=== PATIENT | male | born 1945 | race Caucasian/White ===

== ENCOUNTER 2018-12-06 14:42 | Emergency (ER) | payer OTHER, MEDICARE ==
[2018-12-06 15:10] LABS: ABSOLUTE EOSINOPHILS # (AUTO) 0.1 10^3/uL (0.0-0.6); ABSOLUTE MONOCYTES (AUTO) 0.3 10^3/uL (0.1-1.4); ABSOLUTE NEUT (AUTO) 2.8 10^3/uL (1.7-8.2); BASOPHILS % (AUTO) 0.5 % (0-2); EOSINOPHILS % (AUTO) 1.7 % (0-6); HEMATOCRIT 40.3 % (37.9-51.0); HEMOGLOBIN 13.7 g/dL (13.5-17.0); LYMPHOCYTES % (AUTO) 24.9 % (13-45); MEAN CORPUSCULAR HGB CONC 33.9 g/dL (32.0-36.0); MEAN CORPUSCULAR VOLUME 85 fl (80-97); MONOCYTES % (AUTO) 7.4 % (3-13); PLATELET COUNT 134 10^3/uL (150-450); RED BLOOD COUNT 4.71 10^6/uL (4.35-5.55); RED CELL DISTRIBUTION WIDTH 14.3 % (11.5-14.0); SEGMENTED NEUTROPHILS % (AUTO) 65.5 % (42-78); TOTAL CELLS COUNTED % (AUTO) 100 %; WHITE BLOOD COUNT 4.2 10^3/uL (4.0-10.5)
[2018-12-06] MEDS ORDERED: NITROGLYCERIN 2% OINTMENT 1 GM PACKET TP ONE (15:15)
--- NOTE | 2018-12-06 15:15 | ER Document Report ---
ED Cardiac - General Chief Complaint: Chest Pain Stated Complaint: CHEST PAIN Time Seen by Provider: 12/06/18 15:13 Notes: 73-year-old male to the emergency department for evaluation of chest pain. Patient is a 73-year-old male. Known history of coronary artery disease with open heart surgery, three-vessel bypass grafting, stents. States that pain began earlier today. Pressure in the chest radiating down the left arm. Last conference of cardiac evaluation was performed in July 2018 in [facility]. States that he had a angiogram done at that time which showed some cardiac disease but nothing that was treatable by stents. States that he normally takes all of his medications, 17 pills a day, and has not missed a nything today. Did take a nitroglycerin which helped to relieve some of his symptoms. TRAVEL OUTSIDE OF THE [place] IN LAST 30 DAYS: No - HPI Patient complains to provider of: Chest pain, Chest tightness Was the onset of pain: Sudden Is the pain a: Chronic problem Chest pain location: Substernal Quality of pain: Constant, Moderate, Pressure Chest pain radiation location: Left jaw, Left arm Severity now: Moderate Severity at worst: Moderate Pain level currently: 3 - Related Data Allergies/Adverse Reactions: Sulfa (Sulfonamide Antibiotics) Allergy (Verified 12/06/18 14:53) Past Medical History - General Information source: Patient - Social History Smoking Status: Former Smoker Frequency of alcohol use: None Drug Abuse: None Lives with: Other - Incarcerated Family History: Reviewed & Not Pertinent - Past Medical History Cardiac Medical History: Reports: Hx Coronary Artery Disease Review of Systems - Review of Systems Notes: Constitutional: denies: Chills, Diaphoresis, Fever, Malaise, Weakness EENT: denies: Eye discharge, Blurred vision, Tearing, Double vision, Nose congestion, Nose discharge, Throat swelling, Mouth pain Cardiovascular: denies: Palpitations, Heart racing, Orthopnea, Dyspnea, +Chest pain Respiratory: denies: Cough, Hurts to breathe, Wheezing, Shortness of breath Gastrointestinal: denies: Abdominal pain, Diarrhea, Nausea, Vomiting, Black stoo ls, bright red blood in stool Genitourinary: denies: Burning, Dysuria, Discharge, Frequency, Flank pain, Hematuria Musculoskeletal: denies: Joint pain, Joint swelling, Muscle pain, Muscle stiffness, back pain Hematologic/Lymphatic: denies: Anemia, Easy bleeding, Easy bruising, Blood clots Neurological/Psychological: denies: Confusion, Dementia, Depression, Loss of consciousness Skin: No lesions, no masses, no skin breakdown, no abscesses Constitutional: No symptoms reported EENT: No symptoms reported Cardiovascular: No symptoms reported Respiratory: No symptoms reported Gastrointestinal: No symptoms reported Genitourinary: No symptoms reported Male Genitourinary: No symptoms reported Musculoskeletal: No symptoms reported Skin: No symptoms reported Hematologic/Lymphatic: No symptoms reported Neurological/Psychological: No symptoms reported Physical Exam - Vital signs Vitals: Temp 98.2 F 12/06/18 14:43 Interpretation: Normal - General General appearance: Appears well, Alert - HEENT Head: Normocephalic, Atraumatic Eyes: Normal Pupils: PERRL - Respiratory Respiratory status: No respiratory distress Chest status: Nontender Breath sounds: Normal Chest palpation: Normal - Cardiovascular Rhythm: Regular Heart sounds: Normal auscultation Murmur: No - Abdominal Inspection: Normal Distension: No distension Bowel sounds: Normal Tenderness: Nontender Organomegaly: No organomegaly - Back Back: Normal, Nontender - Extremities General upper extremity: Normal inspection, Nontender, Normal color, Normal ROM, Normal temperature General lower extremity: Normal inspection, Nontender, Normal color, Normal ROM, Normal temperature. No: Daysi's sign - Neurological Neuro grossly intact: Yes Cognition: Normal Orientation: AAOx4 [place] Coma Scale Eye Opening: Spontaneous [place] Coma Scale Verbal: Oriented [place] Coma Scale Motor: Obeys Commands Jovanni Coma Scale Total: 15 Speech: Normal Motor strength normal: LUE, RUE, LLE, RLE Sensory: Normal - Psychological Associated symptoms: Normal affect, Normal mood - Skin Skin Temperature: Warm Skin Moisture: Dry Skin Color: Normal Course - Re-evaluation Re-evalutation: 12/06/18 21:04 Laboratory 12/06/18 12/06/18 12/06/18 14:27 14:27 14:27 WBC 4.2 RBC 4.71 Hgb 13.7 Hct 40.3 MCV 85 MCH 29.0 MCHC 33.9 RDW 14.3 H Plt Count 134 L Seg Neutrophils % 65.5 Lymphocytes % 24.9 Monocytes % 7.4 Eosinophils % 1.7 Basophils % 0.5 Absolute Neutrophils 2.8 Absolute Lymphocytes 1.0 Absolute Monocytes 0.3 Absolute Eosinophils 0.1 Absolute Basophils 0.0 PT INR APTT Sodium 141.9 Potassium 4.8 Chloride 105 Carbon Dioxide 27 Anion Gap 10 BUN 20 Creatinine 1.11 Est GFR ( Amer) > 60 Est GFR (Non-Af Amer) > 60 Glucose 114 H Calcium 10.1 Total Bilirubin 0.9 Direct Bilirubin 0.2 Neonat Total Bilirubin Not Reportable Neonat Direct Bilirubin Not Reportable Neonat Indirect Bili Not Reportable AST 34 ALT 27 Alkaline Phosphatase 72 Creatine Kinase 36 L CK-MB (CK-2) 1.14 Troponin I < 0.012 NT-Pro-B Natriuret Pep Total Protein 6.8 Albumin 4.2 12/06/18 12/06/18 12/06/18 14:27 14:27 19:10 WBC RBC Hgb Hct MCV MCH MCHC RDW Plt Count Seg Neutrophils % Lymphocytes % Monocytes % Eosinophils % Basophils % Absolute Neutrophils Absolute Lymphocytes Absolute Monocytes Absolute Eosinophils Absolute Basophils PT 13.6 INR 0.99 APTT 32.6 Sodium Potassium Chloride Carbon Dioxide Anion Gap BUN Creatinine Est GFR ( Amer) Est GFR (Non-Af Amer) Glucose Calcium Total Bilirubin Direct Bilirubin Neonat Total Bilirubin Neonat Direct Bilirubin Neonat Indirect Bili AST ALT Alkaline Phosphatase Creatine Kinase CK-MB (CK-2) Troponin I < 0.012 NT-Pro-B Natriuret Pep 1060 H Total Protein Albumin Chest X-Ray 12/06/18 14:56 IMPRESSION: Borderline cardiomegaly. No pulmonary edema. 2 sets of cardiac labs negative. Patient has had a recent cardiac catheterization and a workup which was reportedly unremarkable. Chest pain is something that he deals with on a regular basis. 12/06/18 22:16 Muffler Installer has been consulted. He recommends a third set of cardiac labs and discharge if it is negative. Patient has had a recent cardiac catheterization which did not reveal any treatable lesions. Has been seen by float phlebotomist. On current therapies. His chest pain-free at this time. We will follow his recommendations 12/06/18 23:38 Repeat cardiac troponins negative x3. Patient has been observed for extensive amount of time. Do not feel that this represents acute coronary syndrome or u nstable angina. Patient has angina. Has follow-up. Recent cath which was unremarkable. Comfortable discharging at this time in stable condition. - Vital Signs Vital signs: Temp Pulse Resp BP Pulse Ox 98.2 F 17 112/54 L 95 12/06/18 14:43 12/06/18 22:31 12/06/18 22:31 12/06/18 21:00 - Laboratory Result Diagrams: 12/06/18 14:27 12/06/18 14:27 Laboratory results interpreted by me: 12/06/18 12/06/18 12/06/18 14:27 14:27 14:27 RDW 14.3 H Plt Count 134 L Glucose 114 H Creatine Kinase 36 L NT-Pro-B Natriuret Pep 1060 H - EKG Interpretation by Me When compared to previous EKG there are: Previous EKG unavailable Additional EKG results interpreted by me: 12/06/18 15:19 Patient has a artificially atrial sensed ventricular paced rhythm with a rate of 64. No signs of significant ST segment elevation or depression. Discharge - Discharge Clinical Impression: Angina at rest Condition: Good Disposition: HOME, SELF-CARE Instructions: Angina Episode ([facility]), Nitrates ([facility]) Additional Instructions: Follow-up with your float phlebotomist. Continue to take all of your regular medications as prescribed. You may use nitroglycerin 1 tab sublingual if chest pain returns. This may repeat be repeated every 5 minutes for a total of 3 dosages. If chest pain persists after that please notify the staff and return for a repeat evaluation or follow the recommendations of your float phlebotomist. Prescriptions: Nitroglycerin 0.3 mg SL Q5M 1 Days #1 tab.subl Referrals: LEROY WALKER MD [ACTIVE STAFF] - Follow up as needed
[2018-12-06 15:20] LABS: ALANINE AMINOTRANSFERASE 27 U/L (21-72); ALBUMIN 4.2 g/dL (3.5-5.0); ALKALINE PHOSPHATASE 72 U/L (38-126); ANION GAP 10 (5-19); ASPARTATE AMINO TRANSFERASE 34 U/L (17-59); BILIRUBIN,DIRECT 0.2 mg/dL (0.0-0.4); BILIRUBIN,TOTAL 0.9 mg/dL (0.2-1.3); BLOOD UREA NITROGEN 20 mg/dL (7-20); CALCIUM 10.1 mg/dL (8.4-10.2); CARBON DIOXIDE 27 mmol/L (22-30); CHLORIDE 105 mmol/L (98-107); CREATINE KINASE 36 U/L (55-170); GLUCOSE 114 mg/dL (75-110); POTASSIUM 4.8 mmol/L (3.6-5.0); SODIUM 141.9 mmol/L (137-145); TOTAL PROTEIN 6.8 g/dL (6.3-8.2)
[2018-12-06 15:31] LABS: CREATINE KINASE MB 1.14 ng/mL (<4.55)
[2018-12-06 15:32] LABS: TROPONIN I < 0.012 ng/mL
--- NOTE | 2018-12-06 16:00 | EKG REPORT ---
SEVERITY:- ABNORMAL ECG - ATRIAL-SENSED VENTRICULAR-PACED RHYTHM : Confirmed by: Octaviano Juares MD 06-Dec-2018 15:58:57
[2018-12-06 16:01] LABS: INTERNATIONAL RATION (INR) 0.99; PROTHROMBIN TIME 13.6 SEC (11.4-15.4)
[2018-12-06 16:03] LABS: PARTIAL THROMBOPLASTIN TIME 32.6 SEC (23.5-35.8)
--- NOTE | 2018-12-06 16:26 | RADIOLOGY REPORT (SQ) ---
EXAM DESCRIPTION: CHEST SINGLE VIEW COMPLETED DATE/TIME: 12/06/2018 4:05 pm REASON FOR STUDY: chest pain COMPARISON: None. EXAM PARAMETERS: NUMBER OF VIEWS: One view. TECHNIQUE: Single frontal radiographic view of the chest acquired. RADIATION DOSE: NA LIMITATIONS: None. FINDINGS: LUNGS AND PLEURA: No opacities, masses or pneumothorax. No pleural effusion. MEDIASTINUM AND HILAR STRUCTURES: No masses. Contour normal. HEART AND VASCULAR STRUCTURES: Borderline heart size. No pulmonary edema. BONES: No acute findings. HARDWARE: Pacemaker/defibrillator. Sternotomy wires. Graft markers. OTHER: No other significant finding. IMPRESSION: Borderline cardiomegaly. No pulmonary edema. TECHNICAL DOCUMENTATION: JOB ID: [id number] [employer]- All Rights Reserved Reading location - IP/workstation name: [email or web address]
[2018-12-06] MEDS ORDERED: HYDROCODONE/ACETAMINOPHEN 5-325 MG TABLET PO ONE (17:18)
[2018-12-07] VITALS: BP 121/68
== END 2018-12-07 00:02 | disposition home or self-care (01) ==
LOC: ER 14:42
DX: I20.9 Angina pectoris, unspecified (principal); R07.9 Chest pain, unspecified; I25.10 Atherosclerotic heart disease of native coronary artery without angina pectoris; Z88.2 Allergy status to sulfonamides; Z95.1 Presence of aortocoronary bypass graft
CPT/HCPCS: 36415; 71045; 80053; 82550; 82553; 83880; 84484; 85025; 85610; 85730; 93005; 93010; 99285

== ENCOUNTER 2018-12-09 08:18 | Inpatient (IN) | payer MEDICARE ==
[2018-12-09 08:57] LABS: ABSOLUTE LYMPHOCYTES (AUTO) 0.7 10^3/uL (0.5-4.7); ABSOLUTE MONOCYTES (AUTO) 0.2 10^3/uL (0.1-1.4); ABSOLUTE NEUT (AUTO) 6.4 10^3/uL (1.7-8.2); BASOPHILS % (AUTO) 0.2 % (0-2); EOSINOPHILS % (AUTO) 0.2 % (0-6); HEMATOCRIT 43.1 % (37.9-51.0); HEMOGLOBIN 14.4 g/dL (13.5-17.0); LYMPHOCYTES % (AUTO) 9.7 % (13-45); MEAN CORPUSCULAR HEMOGLOBIN 29.5 pg (27.0-33.4); MEAN CORPUSCULAR HGB CONC 33.4 g/dL (32.0-36.0); MEAN CORPUSCULAR VOLUME 88 fl (80-97); MONOCYTES % (AUTO) 2.3 % (3-13); RED BLOOD COUNT 4.89 10^6/uL (4.35-5.55); RED CELL DISTRIBUTION WIDTH 14.2 % (11.5-14.0); SEGMENTED NEUTROPHILS % (AUTO) 87.6 % (42-78); TOTAL CELLS COUNTED % (AUTO) 100 %; WHITE BLOOD COUNT 7.3 10^3/uL (4.0-10.5)
[2018-12-09 09:53] LABS: PLATELET COUNT 95 10^3/uL (150-450)
[2018-12-09 10:15] LABS: ALANINE AMINOTRANSFERASE 63 U/L (21-72); ALBUMIN 4.1 g/dL (3.5-5.0); ALKALINE PHOSPHATASE 82 U/L (38-126); ANION GAP 12 (5-19); ASPARTATE AMINO TRANSFERASE 89 U/L (17-59); BILIRUBIN,DIRECT 0.5 mg/dL (0.0-0.4); BILIRUBIN,TOTAL 2.1 mg/dL (0.2-1.3); BLOOD UREA NITROGEN 22 mg/dL (7-20); CALCIUM 10.4 mg/dL (8.4-10.2); CARBON DIOXIDE 22 mmol/L (22-30); CHLORIDE 107 mmol/L (98-107); GLUCOSE 91 mg/dL (75-110); LIPASE 64.4 U/L (23-300); SODIUM 140.7 mmol/L (137-145); TOTAL PROTEIN 6.6 g/dL (6.3-8.2)
--- NOTE | 2018-12-09 10:34 | RADIOLOGY REPORT (SQ) ---
EXAM DESCRIPTION: ACUTE ABDOMEN SERIES COMPLETED DATE/TIME: 12/09/2018 10:26 am REASON FOR STUDY: Nausea vomiting diarrhea, abdominal distention COMPARISON: None. NUMBER OF VIEWS: Three views. TECHNIQUE: Frontal chest, supine abdomen and upright/decubitus abdomen radiographic images acquired. LIMITATIONS: None. FINDINGS: CHEST: Lungs clear of infiltrates. FREE AIR: None. No abnormal gas collections. BOWEL GAS PATTERN: Gas pattern is nonobstructive. There is mildly dilated large and small bowel. In frequent air-fluid levels on the decubitus film. No free air. CALCIFICATIONS: No suspicious calcifications. HARDWARE: None in the abdomen. SOFT TISSUES: No gross mass or suggestion of organomegaly. BONES: No acute fracture. No worrisome bone lesions. OTHER: No other significant finding. IMPRESSION: Probable ileus. No acute findings in the chest. TECHNICAL DOCUMENTATION: JOB ID: [id number] [employer]- All Rights Reserved Reading location - IP/workstation name: [email or web address]
[2018-12-09] MEDS ORDERED: MORPHINE SULFATE 10 MG/ML INJ IV ONE (10:41)
[2018-12-09] MEDS ORDERED: DEXTROSE 5%-LACTATED RINGERS 1,000 ML IV ONE (10:41)
[2018-12-09] MEDS ORDERED: ONDANSETRON HCL INJ/PF 4 MG/2 ML SDV IV ONE (10:41)
[2018-12-09] MEDS ORDERED: ONDANSETRON HCL INJ/PF 4 MG/2 ML SDV ONE (10:50)
[2018-12-09] MEDS ORDERED: NORMAL SALINE 1000 ML 1,000 ML IV ONE (12:03)
[2018-12-09 14:34] LABS: APPEARANCE,URINE SLIGHTLY-CLOUDY; BILIRUBIN,URINE NEGATIVE (NEGATIVE); COLOR,URINE DARK YELLOW; GLUCOSE, URINE NEGATIVE (NEGATIVE); KETONES,URINE TRACE mg/dL (NEGATIVE); LEUKOCYTE ESTERASE,URINE TRACE (NEGATIVE); NITRITE,URINE NEGATIVE (NEGATIVE); PROTEIN,URINE 30 mg/dL (NEGATIVE); URINE SPECIFIC GRAVITY 1.018
[2018-12-09] MEDS ORDERED: IPRATROPIUM/ALBUTEROL 0.5-2.5 MG/3 ML AMPUL NEB PRN (16:01)
[2018-12-09] MEDS: NORMAL SALINE 1000 ML 1,000 ML IV PRN (16:34)
--- NOTE | 2018-12-09 16:37 | ER Document Report ---
Entered by SOHA BURCH SCRIBE 12/09/18 1011 Acting as scribe for:JASON DIOP MD ED General - General Chief Complaint: Abdominal Pain Stated Complaint: ABDOMINAL PAIN Time Seen by Provider: 12/09/18 09:22 Mode of Arrival: Ambulatory Information source: Patient Notes: Patient is a 73 year old male with HTN, hyperlipidemia, CAD and a history of a 3 vessel bypass, 3 stents, [place] presents to the emergency department from [facility] complaining of multiple symptoms including nausea, vomiting, abdominal cramping, diarrhea and generalized weaknes. Patient states he was incarcerated 4 days ago and his symptoms were onset 3 days ago. He states he vomits and has diarrhea immedatiely after food consumption. The patient initially stated that his symptoms started on Wednesday, he was placed in the halfway here on Wednesday. I pointed out to him that he was here Wednesday af [place] and discharged early Wednesday morning from the emergency room, he then stated that he must of been confused and meant that the symptoms started on Wednesday after he was sent back to the halfway. TRAVEL OUTSIDE OF THE [place] IN LAST 30 DAYS: No - Related Data Allergies/Adverse Reactions: Sulfa (Sulfonamide Antibiotics) Allergy (Verified 12/06/18 14:53) Past Medical History - General Information source: Patient - Social History Smoking Status: Never Smoker Chew tobacco use (# tins/day): No Frequency of alcohol use: None Drug Abuse: None Family History: Reviewed & Not Pertinent Patient has suicidal ideation: No Patient has homicidal ideation: No - Past Medical History Cardiac Medical History: Reports: Hx Congestive Heart Failure, Hx Coronary Artery Disease, Hx Heart Attack - [place] in 2018., Hx Hypercholesterolemia, Hx Hyper tension Pulmonary Medical History: Reports: Hx COPD Malignancy Medical History: Reports Hx Renal (Kidney) Cancer - Left nephrectomy Past Surgical History: Reports: Hx Cardiac Catheterization, Hx Cardiac Surgery - 3 -vessel bypass in 2006 due to unstable agina. Pacemaker. stentsx3 Review of Systems - Review of Systems Constitutional: See HPI, Weakness EENT: No symptoms reported Cardiovascular: No symptoms reported Respiratory: No symptoms reported Gastrointestinal: See HPI, Abdominal pain, Diarrhea, Nausea, Vomiting Genitourinary: No symptoms reported Male Genitourinary: No symptoms reported Musculoskeletal: No symptoms reported Skin: No symptoms reported Hematologic/Lymphatic: No symptoms reported Neurological/Psychological: No symptoms reported -: Yes All other systems reviewed and negative Physical Exam - Vital signs Vitals: Resp BP 22 H 107/66 12/09/18 08:25 12/09/18 08:25 - Notes Notes: GENERAL: Alert, interacts well. No acute distress. HEAD: Normocephalic, atraumatic. EYES: Pupils equal, round, and reactive to light. Extraocular movements intact. ENT: Oral mucosa moist, tongue midline. NECK: Full range of motion. Supple. Trachea midline. LUNGS: Clear to auscultation bilaterally, no wheezes, rales, or rhonchi. No respiratory distress. HEART: Regular rate and rhythm. No murmurs, gallops, or rubs. ABDOMEN: Abdomen distended. Hyperresonant, tender to palpation to the lower abdomen. Decreased bowel sounds. EXTREMITIES: Moves all 4 extremities spontaneously. NEUROLOGICAL: Alert and oriented x3. Normal speech. PSYCH: Normal affect, normal mood. SKIN: Warm, dry, normal turgor. No rashes or lesions noted. Course - Vital Signs Vital signs: Temp Pulse Resp BP Pulse Ox 97.6 F 22 H 100/62 93 12/09/18 13:44 12/09/18 15:01 12/09/18 15:01 12/09/18 15:01 - Laboratory Result Diagrams: 12/09/18 08:37 12/09/18 09:41 Laboratory results interpreted by me: 12/09/18 12/09/18 12/09/18 08:37 09:41 13:46 RDW 14.2 H Plt Count 95 L Seg Neutrophils % 87.6 H Lymphocytes % 9.7 L Monocytes % 2.3 L BUN 22 H Creatinine 1.55 H Est GFR ( Amer) 54 L Est GFR (Non-Af Amer) 44 L Calcium 10.4 H Total Bilirubin 2.1 H Direct Bilirubin 0.5 H AST 89 H Urine Protein 30 H Urine Ketones TRACE H Urine Urobilinogen 4.0 H Ur Leukocyte Esterase TRACE H - Diagnostic Test Radiology reviewed: Image reviewed, Reports reviewed - Acute abdominal series shows scattered air-fluid levels with dilated loops of small bowel and large bowel. Pattern most consistent with ileus. - Consults Dr. Rea Time consulted: 15:20 Consulted provider: will come to ER Discharge - Discharge Clinical Impression: Nausea, vomiting and diarrhea, Dehydration, Ileus, unspecified Condition: Stable Disposition: ADMITTED INPATIENT Admitting Provider: Hospitalist Unit Admitted: Telemetry Scribe Attestation: 12/09/18 12:03 I personally performed the services described in the documentation, reviewed and edited the documentation which was dictated to the scribe in my presence, and it accurately records my words and actions. I personally performed the services described in the documentation, reviewed and edited the documentation which was dictated to the scribe in my presence, and it accurately records my words and actions.
[2018-12-09] MEDS ORDERED: FONDAPARINUX SODIUM INJ 2.5 MG/0.5 ML DISP.SYRIN SUBCUT ONE (17:00)
[2018-12-09 17:05] LABS: A TYPE INFLUENZA AG NEGATIVE (NEGATIVE); B INFLUENZA AG NEGATIVE (NEGATIVE)
--- NOTE | 2018-12-09 18:36 | PDOC H&P ---
History of Present Illness Admission Date/PCP: 12/09/18 17:43 Patient complains of: vomiting, diarrhea History of Present Illness: BETSY AGUDELO is a 73 year old male with a PMH of CAD with prior stenting x 2 (2006, 2007), prior CABG, CHF (reports his EF years ago was 25%), S/P pacemaker placement, ?renal cell CA S/P left sided nephrectomy who comes from [facility] who presented with vomiting and diarrhea. Patient says he has been having nonbloody nonbilious emeses ~2x/day since Wednesday. This was associated with loose, nonbloody stools ~1-2x/day. He also r eports of left lower quadrant crampy pain. Denies fever or chills. He did complain of having some nasal congestion and nonproductive cough. 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 Denies chest pain or SOB. Past Medical History Cardiac Medical History: Reports: Congestive Heart Failure, Coronary Artery Disease, Myocardial Infarction - [place] in 2018., Hyperlipidema, Hypertension Pulmonary Medical History: Reports: Chronic Obstructive Pulmonary Disease (COPD) Malignancy Medical History: Reports: Renal (Kidney) Cancer - Left nephrectomy Past Surgical History Past Surgical History: Reports: Cardiac Catheterization Social History Smoking Status: Never Smoker Family History Family History: Reviewed & Not Pertinent Parental Family History Reviewed: Yes - no premature CAD Children Family History Reviewed: No Sibling(s) Family History Reviewed.: No Medication/Allergy Home Medications: Aspirin [Ecotrin] 81 mg PO DAILY PRN 12/09/18 Atorvastatin Calcium [Lipitor 80 mg Tablet] 80 mg PO DAILY 12/09/18 Citalopram Hydrobromide [Celexa] 20 mg PO DAILY 12/09/18 Clopidogrel Bisulfate [Plavix 75 mg Tablet] 75 mg PO DAILY 12/09/18 Docusate Sodium [Colace 100 mg Capsule] 100 mg PO DAILY 12/09/18 Furosemide [Lasix 40 mg Tablet] 40 mg PO DAILY 12/09/18 Isosorbide Mononitrate [Imdur 60 mg Tablet.er] 60 mg PO DAILY 12/09/18 Lisinopril [Prinivil 2.5 mg Tablet] 2.5 mg PO DAILY 12/09/18 Metoprolol Succinate [Toprol Xl] 75 mg PO DAILY 12/09/18 Omeprazole 40 mg PO DAILY 12/09/18 Potassium Chloride 20 meq PO DAILY 12/09/18 Ranolazine [Ranexa] 1,000 mg PO Q12 12/09/18 Allergies/Adverse Reactions: Sulfa (Sulfonamide Antibiotics) Allergy (Verified 12/06/18 14:53) Review of Systems All systems: reviewed and no additional remarkable complaints except as stated - as mentioned in HPI Physical Exam Vital Signs: Temp Pulse Resp BP Pulse Ox 97.6 F 22 H 100/62 93 12/09/18 13:44 12/09/18 15:01 12/09/18 15:01 12/09/18 15:01 Intake & Output 12/08/18 12/09/18 12/10/18 06:59 06:59 06:59 Intake Total 1999 Balance 1999 Weight 229 lb 8.019 oz General appearance: PRESENT: no acute distress, well-developed, well-nourished Eye exam: PRESENT: conjunctiva pink, EOMI, PERRLA. ABSENT: scleral icterus Ear exam: PRESENT: normal external ear exam Mouth exam: PRESENT: moist, tongue midline Neck exam: ABSENT: carotid bruit, JVD, lymphadenopathy, thyromegaly Respiratory exam: PRESENT: clear to auscultation debbie. ABSENT: rales, rhonchi, wheezes Cardiovascular exam: PRESENT: RRR. ABSENT: diastolic murmur, rubs, systolic murmur GI/Abdominal exam: PRESENT: normal bowel sounds, soft, tenderness - minimal LLQdirect tenderness, negative rebound. ABSENT: distended, guarding, mass, organolmegaly, rebound Rectal exam: PRESENT: deferred Neurological exam: PRESENT: alert, awake, oriented to person, oriented to place, oriented to time, oriented to situation, CN II-XII grossly intact. ABSENT: motor sensory deficit Results Laboratory Results: 12/09/18 08:37 12/09/18 09:41 12/09/18 12/09/18 12/09/18 08:37 08:37 09:41 WBC 7.3 RBC 4.89 Hgb 14.4 Hct 43.1 MCV 88 MCH 29.5 MCHC 33.4 RDW 14.2 H Plt Count 95 L Seg Neutrophils % 87.6 H Lymphocytes % 9.7 L Monocytes % 2.3 L Eosinophils % 0.2 Basophils % 0.2 Absolute Neutrophils 6.4 Absolute Lymphocytes 0.7 Absolute Monocytes 0.2 Absolute Eosinophils 0.0 Absolute Basophils 0.0 Sodium Cancelled 140.7 Potassium Cancelled 4.0 Chloride Cancelled 107 Carbon Dioxide Cancelled 22 Anion Gap Cancelled 12 BUN Cancelled 22 H Creatinine Cancelled 1.55 H Est GFR ( Amer) Cancelled 54 L Est GFR (Non-Af Amer) Cancelled 44 L Glucose Cancelled 91 Calcium Cancelled 10.4 H Magnesium Total Bilirubin Cancelled 2.1 H AST Cancelled 89 H ALT Cancelled 63 Alkaline Phosphatase Cancelled 82 Total Protein Cancelled 6.6 Albumin Cancelled 4.1 Lipase Cancelled 64.4 Urine Color Urine Appearance Urine pH Ur Specific [place] Urine Protein Urine Glucose (UA) Urine Ketones Urine Blood Urine Nitrite Ur Leukocyte Esterase Urine WBC (Auto) Urine RBC (Auto) Stool for White Cells 12/09/18 12/09/18 12/09/18 09:41 13:46 13:46 WBC RBC Hgb Hct MCV MCH MCHC RDW Plt Count Seg Neutrophils % Lymphocytes % Monocytes % Eosinophils % Basophils % Absolute Neutrophils Absolute Lymphocytes Absolute Monocytes Absolute Eosinophils Absolute Basophils Sodium Potassium Chloride Carbon Dioxide Anion Gap BUN Creatinine Est GFR ( Amer) Est GFR (Non-Af Amer) Glucose Calcium Magnesium 2.3 Total Bilirubin AST ALT Alkaline Phosphatase Total Protein Albumin Lipase Urine Color DARK YELLOW Urine Appearance SLIGHTLY-CLOUDY Urine pH 6.0 Ur Specific [place] 1.018 Urine Protein 30 H Urine Glucose (UA) NEGATIVE Urine Ketones TRACE H Urine Blood NEGATIVE Urine Nitrite NEGATIVE Ur Leukocyte Esterase TRACE H Urine WBC (Auto) 20 Urine RBC (Auto) 1 Stool for White Cells NO WBCs SEEN Impressions: Acute Abdomen Series 12/09/18 09:52 IMPRESSION: Probable ileus. No acute findings in the chest. Assessment & Plan - Diagnosis (1) Acute diarrhea Is this a current diagnosis for this admission?: Yes Plan: C difficile was negative. Abdominal series show nonobstructive pattern with ileus. He was given a liter of fluid bolus in the ER. Keep IV fluids at 50 cc/hr for now as he reports his last known EF was 25% years ago. Will request records from [facility]. (2) Ileus of unspecified type Is this a current diagnosis for this admission?: Yes Plan: As per number 1. Will order CT of the abdomen and pelvis. (3) Acute kidney injury Is this a current diagnosis for this admission?: Yes Plan: Creatinine is up to 1.5 from 1.1. IV fluids as mentioned. Will repeat BMP. - Time Time Spent: 30 to 50 Minutes
--- NOTE | 2018-12-09 20:14 | RADIOLOGY REPORT (SQ) ---
EXAM DESCRIPTION: CT ABD/PELVIS NO ORAL OR IV COMPLETED DATE/TIME: 12/09/2018 6:43 pm REASON FOR STUDY: abdominal pain COMPARISON: KUB TECHNIQUE: CT scan of the abdomen and pelvis performed without intravenous or oral contrast. Images reviewed with lung, soft tissue, and bone windows. Reconstructed coronal and sagittal MPR images revi ewed. All images stored on PACS. All CT scanners at this facility use dose modulation, iterative reconstruction, and/or weight based d osing when appropriate to reduce radiation dose to as low as reasonably achievable (ALARA). [facility]: Dose Right [facility]: CareDose [facility]: Dose Right [facility]: Teradose 4D [facility]: Smart GroSocial RADIATION DOSE: CT Rad equipment meets quality standard of care and radiation dose reduction techniq ues were employed. CTDIvol: 17.8 mGy. DLP: 1019 mGy-cm.mGy. LIMITATIONS: None. FINDINGS: LOWER CHEST: No significant findings. No nodules or infiltrates. NON-CONTRASTED LIVER, SPLEEN, ADRENALS: Evaluation limited by lack of IV contrast. No identified sign ificant masses. PANCREAS: No masses. No peripancreatic inflammatory changes. GALLBLADDER: Surgically absent. RIGHT KIDNEY AND URETER: No suspicious masses. Assessment limited by lack of IV contrast. No signif icant calcifications. No hydronephrosis or hydroureter. LEFT KIDNEY AND URETER: Surgically absent. AORTA AND RETROPERITONEUM: No aneurysm. No retroperitoneal masses or adenopathy. BOWEL AND PERITONEAL CAVITY: Diverticular disease. There is diverticulitis with. Colonic fat strand ing in the sigmoid colon. Perforation with scattered air in the left lower quadrant and extending in to the scrotum through the inguinal ligament. APPENDIX: Not visualized. PELVIS, BLADDER, AND ABDOMINAL WALL:No abnormal masses. No free fluid. Bladder normal. BONES: No significant findings. OTHER: No other significant finding. IMPRESSION: Sigmoid Diverticulitis with perforation. Free air is seen in the left lower quadrant as well as extending through the inguinal ligament into the scrotum. COMMENT: Pertinent findings on the imaging study reported as a CRITICAL RESULT to moisés at20:08 on 12/09/2018. Category of Critical Result: Free air secondary to perforated diverticulitis Quality ID # [id number]: Final reports with documentation of one or more dose reduction techniques (e.g., Au tomated exposure control, adjustment of the mA and/or kV according to patient size, use of iterative reconstruction technique) TECHNICAL DOCUMENTATION: JOB ID: [id number] [employer]- All Rights Reserved Reading location - IP/workstation name: [email or web address]
[2018-12-09] MEDS ORDERED: CEFAZOLIN 2 GM/D5W RTU 2 GM/50 ML RTUPB IV SCH (20:30)
[2018-12-09] MEDS: MORPHINE SULFATE 10 MG/ML INJ IV PRN (20:32)
[2018-12-09] MEDS ORDERED: METRONIDAZOLE 500 MG/NS RTU 500 MG/100 ML RTUPB IV ONE (20:53)
[2018-12-09] MEDS: CEFAZOLIN SODIUM 2 GM in DEXTROSE 5%-WATER 100 ML IV SCH (20:57)
--- NOTE | 2018-12-09 21:13 | PDOC CONSULTATION ---
Consultation Consult Date: 12/09/18 History of Present Illness Admission Date/PCP: 12/09/18 17:43 History of Present Illness: BETSY AGUDELO is a 73 year old maleWILLHAYDEN AGUDELO is a 73 year old male with a PMH of CAD with prior stenting x 2 (2006, 2007), prior CABG, CHF (reports his EF years ago was 25%), S/P pacemaker placement, ?renal cell CA S/P left sided nephrectomy who comes from [facility] who presented with vomiting and diarrhea. Patient says he has been having nonbloody nonbilious emeses ~2x/day since Wednesday. This was associated with loose, nonbloody stools ~1-2x/day. He also reports of left lower quadrant crampy pain. Denies fever or chills. He did complain of having some nasal congestion and nonproductive cough. 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 he was admitted for a possible c-diff infection howerever a ct was done in er prior to admission after pt arrived to floor report of ct confirmed perforated diverticulitis with free air surgery consult obtained Past Medical History Cardiac Medical History: Reports: Congestive Heart Failure, Coronary Artery Disease, Myocardial Infarction - VT in 2018., Hyperlipidema, Hypertension, Other - reported ef of 25% Pulmonary Medical History: Reports: Chronic Obstructive Pulmonary Disease (COPD) Neurological Medical History: Reports: None Endocrine Medical History: Reports: None Renal/ Medical History: Reports: Other - hx of left nephrectomy for renal cell ca Malignancy Medical History: Reports: Renal (Kidney) Cancer - Left nephrectomy GI Medical History: Reports: None Musculoskeltal Medical History: Reports: None Skin Medical History: Reports: None Past Surgical History Past Surgical History: Reports: Cardiac Catheterization, Other - nephrectomy Social History Smoking Status: Never Smoker - Advance Directive Resuscitation Status: Full Code Family History Family History: Reviewed & Not Pertinent Parental Family History Reviewed: No Children Family History Reviewed: NA Sibling(s) Family History Reviewed.: NA Medication/Allergy Home Medications: Aspirin [Ecotrin] 81 mg PO DAILY PRN 12/09/18 Atorvastatin Calcium [Lipitor 80 mg Tablet] 80 mg PO DAILY 12/09/18 Citalopram Hydrobromide [Celexa] 20 mg PO DAILY 12/09/18 Clopidogrel Bisulfate [Plavix 75 mg Tablet] 75 mg PO DAILY 12/09/18 Docusate Sodium [Colace 100 mg Capsule] 100 mg PO DAILY 12/09/18 Furosemide [Lasix 40 mg Tablet] 40 mg PO DAILY 12/09/18 Isosorbide Mononitrate [Imdur 60 mg Tablet.er] 60 mg PO DAILY 12/09/18 Lisinopril [Prinivil 2.5 mg Tablet] 2.5 mg PO DAILY 12/09/18 Metoprolol Succinate [Toprol Xl] 75 mg PO DAILY 12/09/18 Omeprazole 40 mg PO DAILY 12/09/18 Potassium Chloride 20 meq PO DAILY 12/09/18 Ranolazine [Ranexa] 1,000 mg PO Q12 12/09/18 Allergies/Adverse Reactions: Sulfa (Sulfonamide Antibiotics) Allergy (Verified 12/06/18 14:53) Review of Systems Constitutional: PRESENT: as per HPI, anorexia Eyes: PRESENT: as per HPI Ears: PRESENT: as per HPI Nose, Mouth, and Throat: PRESENT: as per HPI Breasts: PRESENT: as per HPI Cardiovascular: PRESENT: other - see hpi nx of mi, cabg,aicd,ef 25% Gastrointestinal: PRESENT: as per HPI Genitourinary: PRESENT: as per HPI Musculoskeletal: PRESENT: as per HPI Integumentary: PRESENT: as per HPI Neurological: PRESENT: as per HPI Psychiatric: PRESENT: as per HPI Endocrine: PRESENT: as per HPI Hematologic/Lymphatic: PRESENT: as per HPI Allergic/Immunologic: PRESENT: as per HPI Physical Exam Vital Signs: Temp Pulse Resp BP Pulse Ox 97.6 F 16 102/88 H 95 12/09/18 13:44 12/09/18 18:03 12/09/18 18:03 12/09/18 18:03 Intake & Output 12/08/18 12/09/18 12/10/18 06:59 06:59 06:59 Intake Total 1999 Balance 1999 Weight 104.1 kg General appearance: PRESENT: no acute distress Head exam: PRESENT: atraumatic Eye exam: PRESENT: EOMI, PERRLA Neck exam: PRESENT: full ROM Respiratory exam: PRESENT: clear to auscultation debbie Cardiovascular exam: PRESENT: RRR Pulses: PRESENT: normal carotid pulses, normal radial pulses, normal femoral pulses Vascular exam: PRESENT: normal capillary refill GI/Abdominal exam: PRESENT: other - left abd scar (nephrectomy) tender with mild rebound tenderness llq other quadrents non tender no hernias no masses softly distended Rectal exam: PRESENT: deferred Gentrourinary exam: PRESENT: other - scrotum non tender, no crepatance. Neurological exam: PRESENT: alert, awake, oriented to person, oriented to place, oriented to time, oriented to situation Psychiatric exam: PRESENT: appropriate affect Skin exam: PRESENT: dry Results Laboratory Results: 12/09/18 08:37 12/09/18 09:41 12/09/18 12/09/18 12/09/18 08:37 08:37 09:41 WBC 7.3 RBC 4.89 Hgb 14.4 Hct 43.1 MCV 88 MCH 29.5 MCHC 33.4 RDW 14.2 H Plt Count 95 L Seg Neutrophils % 87.6 H Lymphocytes % 9.7 L Monocytes % 2.3 L Eosinophils % 0.2 Basophils % 0.2 Absolute Neutrophils 6.4 Absolute Lymphocytes 0.7 Absolute Monocytes 0.2 Absolute Eosinophils 0.0 Absolute Basophils 0.0 Sodium Cancelled 140.7 Potassium Cancelled 4.0 Chloride Cancelled 107 Carbon Dioxide Cancelled 22 Anion Gap Cancelled 12 BUN Cancelled 22 H Creatinine Cancelled 1.55 H Est GFR ( Amer) Cancelled 54 L Est GFR (Non-Af Amer) Cancelled 44 L Glucose Cancelled 91 Calcium Cancelled 10.4 H Magnesium Total Bilirubin Cancelled 2.1 H AST Cancelled 89 H ALT Cancelled 63 Alkaline Phosphatase Cancelled 82 Total Protein Cancelled 6.6 Albumin Cancelled 4.1 Lipase Cancelled 64.4 Urine Color Urine Appearance Urine pH Ur Specific [place] Urine Protein Urine Glucose (UA) Urine Ketones Urine Blood Urine Nitrite Ur Leukocyte Esterase Urine WBC (Auto) Urine RBC (Auto) Stool for White Cells 12/09/18 12/09/18 12/09/18 09:41 13:46 13:46 WBC RBC Hgb Hct MCV MCH MCHC RDW Plt Count Seg Neutrophils % Lymphocytes % Monocytes % Eosinophils % Basophils % Absolute Neutrophils Absolute Lymphocytes Absolute Monocytes Absolute Eosinophils Absolute Basophils Sodium Potassium Chloride Carbon Dioxide Anion Gap BUN Creatinine Est GFR ( Amer) Est GFR (Non-Af Amer) Glucose Calcium Magnesium 2.3 Total Bilirubin AST ALT Alkaline Phosphatase Total Protein Albumin Lipase Urine Color DARK YELLOW Urine Appearance SLIGHTLY-CLOUDY Urine pH 6.0 Ur Specific [place] 1.018 Urine Protein 30 H Urine Glucose (UA) NEGATIVE Urine Ketones TRACE H Urine Blood NEGATIVE Urine Nitrite NEGATIVE Ur Leukocyte Esterase TRACE H Urine WBC (Auto) 20 Urine RBC (Auto) 1 Stool for White Cells NO WBCs SEEN Impressions: Acute Abdomen Series 12/09/18 09:52 IMPRESSION: Probable ileus. No acute findings in the chest. Abdomen/Pelvis CT 12/09/18 18:21 IMPRESSION: Sigmoid Diverticulitis with perforation. Free air is seen in the left lower quadrant as well as extending through the inguinal ligament into the scrotum. Status: Image reviewed by co - ct reviwed pt with localized sigmoid diverticular perforation localized free air mingrating to left inguinal canal no sig free fluid min stranding around sigmoid Assessment & Plan - Plan Summary Plan Summary: pt with perforated diverticulitis with small amts of free air no free fluid pt is high risk for surgery due to reported cardiac hx, with low ejection fraction aicd in place pacemaker pt currently on plavix, last dose less than 48 hrs ago currently his wbc is wnl and he does not have diffuse peritonitis no evidence of sepis after long discussion ;iwth pt I believe the better course is non operative at this time I have asked medical phyician to contact cardiology for cardiac clearance in case he deteriorates and requires surgery., will cont iv abx, npo status and close observation
--- NOTE | 2018-12-09 23:24 | XCELERA REPORT ---
[address] [address] Transthoracic Echocardiogram Report Name: BETSY AGUDELO Age: 73 yrs Gender: Male : 1945 Patient Status: Inpatient Patient Location: [address] [place], [place] [id number] Study Date: 12/09/2018 09:59 PM Height: 69 in Weight: 229 lb BSA: 2.2 m2 Procedure: A two-dimensional transthoracic echocardiogram with color flow and Doppler was performed. Study Quality: Poor. Very poor endocardial visualisation.Hence interpretation subject to severe limitation.Poor doppler interogation. Reason For Study: systolic murmur History: systolic murmur / Prop-Op. Ordering Physician: MORENITA MULLINS Performed By: Pretty Cardenas Interpretation Summary Very poor endocardial visualisation.Hence interpretation subject to severe limitation.Poor doppler interogation. Probaly moderately dilated LV size.No Defenite LVH.Probable moderate diffuse hypokinesis, with modwrately reduced LVEF of 35%. Doppler measurements suggest impaired left ventricular relaxation, which is associated with grade I/IV or mild diastolic dysfunction Cannot comment on RV or RA. The left atrium is mildly dilated. There is no evidence of mitral valve prolapse. There is no vegetation seen on the mitral valve. There is no mitral valve stenosis. Probably trace MR. There is mild aortic stenosis There is a peak gradient of 18 mm of Hg. No hemodynamically significant valvular aortic stenosis. There is a mild amount of aortic regurgitation Visually Aortic valve opens well. There is no tricuspid stenosis. Probably mild TR..RVSP is 37 mm of Hg , with RA mean of 10. There is mild pulmonary hypertension by echo There is a trace amount of pulmonic regurgitation There is no pulmonic valvular stenosis. There is no pericardial effusion. MMode/2D Measurements & Calculations RVDd: 3.0 cm LVIDd: 5.6 cm FS: 21.0 % Ao root diam: 3.4 cm IVSd: 1.1 cm LVIDs: 4.4 cm EDV(Teich): 151.9 ml Ao root area: 9.2 cm2 LVPWd: 1.0 cm ESV(Teich): 87.9 ml LA dimension: 3.5 cm EF(Teich): 42.1 % Doppler Measurements & Calculations MV E max ethan: MV P1/2t max ethan: Ao V2 max: AI max ethan: 92.8 cm/sec 125.1 cm/sec 141.6 cm/sec 343.3 cm/sec MV A max ethan: MV P1/2t: 53.0 msec Ao max PG: AI max P.5 cm/sec MVA(P1/2t): 4.2 cm2 8.0 mmHg 47.2 mmHg MV E/A: 1.2 MV dec slope: AI dec slope: 235.3 cm/sec2 691.1 cm/sec2 AI P1/2t: MV dec time: 0.13 sec 427.4 msec LV V1 max PG: PA V2 max: TR max ethan: AV P1/2t-pr_phl: 4.5 mmHg 90.3 cm/sec 234.8 cm/sec 427.8 msec LV V1 max: PA max P.3 mmHg TR max P.6 cm/sec 22.1 mmHg MV P1/2t-pr_phl: 53.0 msec Left Ventricle Probaly moderately dilated LV size.No Defenite LVH.Probable moderate diffuse hypokinesis, with modwrately reduced LVEF of 35%. Doppler measurements suggest impaired left ventricular relaxation, which is associated with grade I/IV or mild diastolic dysfunction. Right Ventricle The right ventricle is not well visualized secondary to technical limitations. Cannot comment on RV or RA. At[place] Right atrium not well visualized secondary to technical limitations. The left atrium is mildly dilated. Mitral Valve There is no evidence of mitral valve prolapse. There is no vegetation seen on the mitral valve. There is no mitral valve stenosis. Probably trace MR. Aortic Valve The aortic valve is not well visualized secondary to technical limitations. There is mild aortic stenosis. There is a peak gradient of 18 mm of Hg. No hemodynamically significant valvular aortic stenosis. Visually Aortic valve opens well. There is a mild amount of aortic regurgitation. Tricuspid Valve There is no tricuspid stenosis. Probably mild TR..RVSP is 37 mm of Hg , with RA mean of 10. There is mild pulmonary hypertension by echo. Pulmonic Valve There is no pulmonic valvular stenosis. There is a trace amount of pulmonic regurgitation. Great Vessels The aortic root is normal size. Effusions There is no pericardial effusion. : MORENITA MULLINS > Lianna, Ema
[2018-12-09] MEDS: METRONIDAZOLE 500 MG/NS RTU 500 MG/100 ML RTUPB IV SCH (23:48)
[2018-12-10] MEDS: MORPHINE SULFATE 10 MG/ML INJ IV PRN ×2 (03:00→13:18)
[2018-12-10] MEDS: CEFAZOLIN SODIUM 2 GM in DEXTROSE 5%-WATER 100 ML IV SCH ×2 (03:02→09:41)
[2018-12-10] MEDS: METRONIDAZOLE 500 MG/NS RTU 500 MG/100 ML RTUPB IV SCH ×3 (05:38→18:36)
[2018-12-10 05:58] LABS: ABSOLUTE MONOCYTES (AUTO) 0.4 10^3/uL (0.1-1.4); ABSOLUTE NEUT (AUTO) 6.2 10^3/uL (1.7-8.2); BASOPHILS % (AUTO) 0.1 % (0-2); EOSINOPHILS % (AUTO) 0.6 % (0-6); HEMATOCRIT 36.1 % (37.9-51.0); HEMOGLOBIN 12.5 g/dL (13.5-17.0); LYMPHOCYTES % (AUTO) 12.8 % (13-45); MEAN CORPUSCULAR HEMOGLOBIN 29.5 pg (27.0-33.4); MEAN CORPUSCULAR HGB CONC 34.6 g/dL (32.0-36.0); MEAN CORPUSCULAR VOLUME 85 fl (80-97); MONOCYTES % (AUTO) 4.8 % (3-13); PLATELET COUNT 112 10^3/uL (150-450); RED BLOOD COUNT 4.24 10^6/uL (4.35-5.55); RED CELL DISTRIBUTION WIDTH 14.7 % (11.5-14.0); SEGMENTED NEUTROPHILS % (AUTO) 81.7 % (42-78); TOTAL CELLS COUNTED % (AUTO) 100 %; WHITE BLOOD COUNT 7.6 10^3/uL (4.0-10.5)
[2018-12-10 06:17] LABS: ANION GAP 7 (5-19); BLOOD UREA NITROGEN 18 mg/dL (7-20); CALCIUM 9.5 mg/dL (8.4-10.2); CARBON DIOXIDE 22 mmol/L (22-30); CHLORIDE 111 mmol/L (98-107); GLUCOSE 83 mg/dL (75-110); POTASSIUM 4.1 mmol/L (3.6-5.0); SODIUM 140.1 mmol/L (137-145)
--- NOTE | 2018-12-10 08:11 | PDOC PROGRESS REPORT ---
Subjective Progress Note for:: 12/10/18 Reason For Visit: ACUTE DIARRHEA, ILEUS, ACUTE KIDNEY INJURY perforated diverticulitis Physical Exam Vital Signs: Temp Pulse Resp BP Pulse Ox 98.7 F 84 19 108/53 L 94 12/10/18 04:44 12/10/18 04:44 12/09/18 19:53 12/10/18 04:44 12/10/18 04:44 Intake & Output 12/09/18 12/10/18 12/11/18 06:59 06:59 06:59 Intake Total 2400 Balance 2400 Weight 103 kg General appearance: PRESENT: no acute distress Respiratory exam: PRESENT: clear to auscultation debbie, unlabored Cardiovascular exam: PRESENT: RRR Pulses: PRESENT: normal carotid pulses, normal radial pulses, normal femoral pulses GI/Abdominal exam: PRESENT: soft, tenderness - still with llq tenderness, however improved since last pm 'no peritoneal signs. Results Laboratory Results: 12/10/18 05:07 12/10/18 05:07 12/09/18 12/09/18 12/09/18 08:37 08:37 09:41 WBC 7.3 RBC 4.89 Hgb 14.4 Hct 43.1 MCV 88 MCH 29.5 MCHC 33.4 RDW 14.2 H Plt Count 95 L Seg Neutrophils % 87.6 H Lymphocytes % 9.7 L Monocytes % 2.3 L Eosinophils % 0.2 Basophils % 0.2 Absolute Neutrophils 6.4 Absolute Lymphocytes 0.7 Absolute Monocytes 0.2 Absolute Eosinophils 0.0 Absolute Basophils 0.0 Sodium Cancelled 140.7 Potassium Cancelled 4.0 Chloride Cancelled 107 Carbon Dioxide Cancelled 22 Anion Gap Cancelled 12 BUN Cancelled 22 H Creatinine Cancelled 1.55 H Est GFR ( Amer) Cancelled 54 L Est GFR (Non-Af Amer) Cancelled 44 L Glucose Cancelled 91 Calcium Cancelled 10.4 H Magnesium Total Bilirubin Cancelled 2.1 H AST Cancelled 89 H ALT Cancelled 63 Alkaline Phosphatase Cancelled 82 Total Protein Cancelled 6.6 Albumin Cancelled 4.1 Lipase Cancelled 64.4 Urine Color Urine Appearance Urine pH Ur Specific [place] Urine Protein Urine Glucose (UA) Urine Ketones Urine Blood Urine Nitrite Ur Leukocyte Esterase Urine WBC (Auto) Urine RBC (Auto) Stool for White Cells 12/09/18 12/09/18 12/09/18 09:41 13:46 13:46 WBC RBC Hgb Hct MCV MCH MCHC RDW Plt Count Seg Neutrophils % Lymphocytes % Monocytes % Eosinophils % Basophils % Absolute Neutrophils Absolute Lymphocytes Absolute Monocytes Absolute Eosinophils Absolute Basophils Sodium Potassium Chloride Carbon Dioxide Anion Gap BUN Creatinine Est GFR ( Amer) Est GFR (Non-Af Amer) Glucose Calcium Magnesium 2.3 Total Bilirubin AST ALT Alkaline Phosphatase Total Protein Albumin Lipase Urine Color DARK YELLOW Urine Appearance SLIGHTLY-CLOUDY Urine pH 6.0 Ur Specific [place] 1.018 Urine Protein 30 H Urine Glucose (UA) NEGATIVE Urine Ketones TRACE H Urine Blood NEGATIVE Urine Nitrite NEGATIVE Ur Leukocyte Esterase TRACE H Urine WBC (Auto) 20 Urine RBC (Auto) 1 Stool for White Cells NO WBCs SEEN 12/10/18 12/10/18 05:07 05:07 WBC 7.6 RBC 4.24 L Hgb 12.5 L Hct 36.1 L MCV 85 MCH 29.5 MCHC 34.6 RDW 14.7 H Plt Count 112 L Seg Neutrophils % 81.7 H Lymphocytes % 12.8 L Monocytes % 4.8 Eosinophils % 0.6 Basophils % 0.1 Absolute Neutrophils 6.2 Absolute Lymphocytes 1.0 Absolute Monocytes 0.4 Absolute Eosinophils 0.0 Absolute Basophils 0.0 Sodium 140.1 Potassium 4.1 Chloride 111 H Carbon Dioxide 22 Anion Gap 7 BUN 18 Creatinine 1.10 Est GFR ( Amer) > 60 Est GFR (Non-Af Amer) > 60 Glucose 83 Calcium 9.5 Magnesium Total Bilirubin AST ALT Alkaline Phosphatase Total Protein Albumin Lipase Urine Color Urine Appearance Urine pH Ur Specific [place] Urine Protein Urine Glucose (UA) Urine Ketones Urine Blood Urine Nitrite Ur Leukocyte Esterase Urine WBC (Auto) Urine RBC (Auto) Stool for White Cells Impressions: Acute Abdomen Series 12/09/18 09:52 IMPRESSION: Probable ileus. No acute findings in the chest. Abdomen/Pelvis CT 12/09/18 18:21 IMPRESSION: Sigmoid Diverticulitis with perforation. Free air is seen in the left lower quadrant as well as extending through the inguinal ligament into the scrotum. Assessment & Plan - Inpatient Certification Medical Necessity: Need for IV Antibiotics - Plan Summary Plan Summary: pt sl improved this am ]wbc 7.6 stable pain sl improved passing flatus, no stool\ in lieu of high risk surgery with a pt on plavix and poor cardiac risk will cont iwth iv abx as his ]condition is stable and sl improved.
[2018-12-10] MEDS: ASPIRIN 81 MG TABLET, CHEWABLE PO SCH (09:42)
--- NOTE | 2018-12-10 12:08 | PDOC PROGRESS REPORT ---
Subjective Progress Note for:: 12/10/18 Subjective:: BETSY AGUDELO is a 73 year old male with a PMH of CAD with prior stenting x 2 (2006, 2007), prior CABG, CHF (reports his EF years ago was 25%), S/P pacemaker placement, ?renal cell CA S/P left sided nephrectomy who [facility] who presented with vomiting and diarrhea. He was found to have ileus on abdominal series. His abdominal CT came back remarkable for a perforated diverticulitis. Surgery evaluated patient and recommended conservative management for now as he was deemed high surgical risk. This morning, he is sitting on a chair and says the abdomninal pain has slightly improved. No nausea or vomiting. He did have a loose stool this morning. Reason For Visit: ACUTE DIARRHEA, ILEUS, ACUTE KIDNEY INJURY Physical Exam Vital Signs: Temp Pulse Resp BP Pulse Ox 98.4 F 73 16 111/58 L 97 12/10/18 08:15 12/10/18 08:15 12/10/18 08:15 12/10/18 08:15 12/10/18 08:15 Intake & Output 12/09/18 12/10/18 12/11/18 06:59 06:59 06:59 Intake Total 2400 100 Balance 2400 100 Weight 227 lb 1.218 oz General appearance: PRESENT: no acute distress, well-developed, well-nourished Head exam: PRESENT: atraumatic, normocephalic Eye exam: PRESENT: conjunctiva pink, EOMI, PERRLA. ABSENT: scleral icterus Ear exam: PRESENT: normal external ear exam Mouth exam: PRESENT: moist, tongue midline Neck exam: ABSENT: carotid bruit, JVD, lymphadenopathy, thyromegaly Respiratory exam: PRESENT: clear to auscultation debbie. ABSENT: rales, rhonchi, wheezes Cardiovascular exam: PRESENT: RRR. ABSENT: diastolic murmur, rubs, systolic murmur GI/Abdominal exam: PRESENT: normal bowel sounds, soft, tenderness - mild direct tenderness over the LLQ. ABSENT: distended, guarding, mass, organolmegaly, rebound Rectal exam: PRESENT: deferred Neurological exam: PRESENT: alert, awake, oriented to person, oriented to place, oriented to time, oriented to situation, CN II-XII grossly intact. ABSENT: motor sensory deficit Results Laboratory Results: 12/10/18 05:07 02/02/19 05:07 12/09/18 12/09/18 12/09/18 09:41 13:46 13:46 WBC RBC Hgb Hct MCV MCH MCHC RDW Plt Count Seg Neutrophils % Lymphocytes % Monocytes % Eosinophils % Basophils % Absolute Neutrophils Absolute Lymphocytes Absolute Monocytes Absolute Eosinophils Absolute Basophils Sodium Potassium Chloride Carbon Dioxide Anion Gap BUN Creatinine Est GFR ( Amer) Est GFR (Non-Af Amer) Glucose Calcium Magnesium 2.3 Urine Color DARK YELLOW Urine Appearance SLIGHTLY-CLOUDY Urine pH 6.0 Ur Specific [place] 1.018 Urine Protein 30 H Urine Glucose (UA) NEGATIVE Urine Ketones TRACE H Urine Blood NEGATIVE Urine Nitrite NEGATIVE Ur Leukocyte Esterase TRACE H Urine WBC (Auto) 20 Urine RBC (Auto) 1 Stool for White Cells NO WBCs SEEN 12/10/18 12/10/18 05:07 05:07 WBC 7.6 RBC 4.24 L Hgb 12.5 L Hct 36.1 L MCV 85 MCH 29.5 MCHC 34.6 RDW 14.7 H Plt Count 112 L Seg Neutrophils % 81.7 H Lymphocytes % 12.8 L Monocytes % 4.8 Eosinophils % 0.6 Basophils % 0.1 Absolute Neutrophils 6.2 Absolute Lymphocytes 1.0 Absolute Monocytes 0.4 Absolute Eosinophils 0.0 Absolute Basophils 0.0 Sodium 140.1 Potassium 4.1 Chloride 111 H Carbon Dioxide 22 Anion Gap 7 BUN 18 Creatinine 1.10 Est GFR ( Amer) > 60 Est GFR (Non-Af Amer) > 60 Glucose 83 Calcium 9.5 Magnesium Urine Color Urine Appearance Urine pH Ur Specific [place] Urine Protein Urine Glucose (UA) Urine Ketones Urine Blood Urine Nitrite Ur Leukocyte Esterase Urine WBC (Auto) Urine RBC (Auto) Stool for White Cells Impressions: Acute Abdomen Series 12/09/18 09:52 IMPRESSION: Probable ileus. No acute findings in the chest. Abdomen/Pelvis CT 12/09/18 18:21 IMPRESSION: Sigmoid Diverticulitis with perforation. Free air is seen in the left lower quadrant as well as extending through the inguinal ligament into the scrotum. Assessment & Plan - Diagnosis (1) Perforated diverticulum Is this a current diagnosis for this admission?: Yes Plan: Surgery following. Recommended conservative management at this time. Will switch cefazolin to Zosyn. (2) Acute diarrhea Is this a current diagnosis for this admission?: Yes Plan: Secondary to acute diverticulitis. C difficile was negative. Abdominal series show nonobstructive pattern with ileus. He was given a liter of fluid bolus in the ER. Keep IV fluids at 50 cc/hr for now as he reports his last known EF was 25% years ago. Awaiting records from [facility]. (3) Ileus of unspecified type Is this a current diagnosis for this admission?: Yes Plan: Secondary to perforated diverticulitis. (4) Acute kidney injury Is this a current diagnosis for this admission?: Yes Plan: Resolved with IV fluids. - Time Time Spent with patient: 25-34 minutes
[2018-12-10] MEDS ORDERED: DEXTROSE 50%-WATER 25 GM/50 ML DISP.SYRIN IV PRN ×2 (12:40)
[2018-12-10] MEDS ORDERED: DEXTROSE 40% GEL 15 GM TUBE PO PRN ×2 (12:40)
[2018-12-10] MEDS ORDERED: GLUCAGON,HUMAN RECOMB 1 MG INJ SUBCUT PRN (12:40)
[2018-12-10] MEDS: NORMAL SALINE 1000 ML 1,000 ML IV PRN (12:56)
[2018-12-10] MEDS: PIPERACILLIN SODIUM/TAZOBACTAM 3.375 GM in NORMAL SALINE 100 ML IV SCH ×2 (15:54→22:03)
--- NOTE | 2018-12-10 19:28 | RADIOLOGY REPORT (SQ) ---
EXAM DESCRIPTION: FOOT RIGHT COMPLETE COMPLETED DATE/TIME: 12/10/2018 7:14 pm REASON FOR STUDY: trauma to right foot/ankle COMPARISON: None. EXAM PARAMETERS: NUMBER OF VIEWS: Three views. TECHNIQUE: AP, lateral and oblique radiographic images acquired of the right foot. LIMITATIONS: None. FINDINGS: MINERALIZATION: Osteopenia. BONES: No acute fracture or dislocation. No worrisome bone lesions. JOINTS: No effusion. SOFT TISSUES: No significant soft tissue swelling. No radiopaque foreign body. OTHER: No other significant finding. IMPRESSION: NO FRACTURE. TECHNICAL DOCUMENTATION: JOB ID: [id number] [id number] [employer]- All Rights Reserved Reading location - IP/workstation name: [employer]
--- NOTE | 2018-12-10 22:51 | PDOC CONSULTATION ---
Consultation-Blank Consultation: CARDIOLOGY CONSULTATION by Dr. Ema Dsouza on 12/10/2018. Patient seen 7:45 PM on 12/10/2018. Note with the patient's verbal permission his records from [facility] were accessed. 60 minutes spent on this patient with more than 50% of time spent in direct patient care. REASON FOR CONSULTATION: Cardiac risk assessment for possible abdominal surgery for perforated diverticulitis. HISTORY of PRESENT ILLNESS: Patient is a 73-year old male with known history of coronary artery disease, history of prior FL, status post coronary artery bypass graft surgery in 2009 after an FL, ovarian the patient had a SPICER to the LAD, and a saphenous vein graft to the obtuse marginal 3 branch, and history of ischemic cardiomyopathy, with a LV ejection fraction of 30% to 35%, status post biventricular AICD, hypertension, history of asthma and COPD, and history of obstructive sleep apnea, and history of depression admitted with abdominal pain and nausea and vomiting. He is now diagnosed to have a perforated diverticulitis, with free air in the abdomen. The patient is being treated conservatively with the the patient kept n.p.o., and the patient being hydrated, and treated with IV antibiotics. At present the patient denies any chest pain discomfort. There is no palpitations. There is no PND or orthopnea. There is no leg edema. With current treatment the patient's abdominal pain is much improved. And there is no rebound or guarding or rigidity of the abdomen. At present the patient has some mild nausea, but has not vomited. Initially the patient's GFR is 44, most likely secondary to the patient's dehydration to his poor intake and also due to his vomiting, and with the hydration at present the GFR is greater than 60 mL/min, which is normal renal function.. Of note the patient has a solitary kidney, with a left renal cancer causing surgical left nephrectomy. He states that his renal cancer has been cured. PAST MEDICAL HISTORY: He has a history of hypertension. There is no history of diabetes mellitus. History of coronary artery disease, history of FL and his tory of coronary artery bypass graft surgery. He was admitted to [facility] with chest pains in March 2018, where he had a cardiac catheterization. Please see the report below. At that time there was a distal PLV branch of the right coronary artery which had a 80% lesion, but this was not and number amenable to percutaneous intervention. The patient was delegated to being treated medically. He has a history of ischemic cardia myopathy with LV ejection fraction of 30% to 35%. And had a biventricular AICD placed. No firing of his AICD in a long time. The patient has atypical chest pain off and on. He was here in the emergency room in late November 2018, with chest pain, FL is ruled out. And the patient was transferred back with advised to continue his medications. He has no history of thyroid disease. He has a history of asthma and COPD PD. He has a history of sleep apnea, but does not wear BiPAP. He also has a history of depression. He has a past history of renal cancer for which she has had left nephrectomy. There is no TIA CVA. PAST SURGICAL HISTORY: Cardiac catheterization, history of coronary artery bypass graft surgery. History of left nephrectomy. And history of AICD placement. ALLERGIES: The patient is allergic to sulfa. SOCIAL history: The patient has never smoked. There is no history of EtOH abuse. FAMILY HISTORY: Is positive for hypertension and coronary artery disease. No premature CAD in the family. DISPOSITION: The patient is a full code. He states he does not have any relatives. His friend was very close to him is his surrogate healthcare decision maker. REVIEW SYSTEMS: Constitutional states that he had fever and chills and rigors. Complains of generalized fatigue and weakness. HEAD: No history of headaches or head injury. EYES: No history of amblyopia diplopia. No history of amaurosis fugax. EARS: No history of hearing loss. No history of tinnitus. No history of recurrent ear infections. NOSE: No history of hayfever. No history of nosebleeds. No history of nasal polyposis. MOUTH: Had some dryness of the mouth. No altered taste taste sensation. At present with the hydration is dryness of the mouth has resolved. There is no bleeding from the gums. There is no ulcers in the mouth. THROAT: There is no history of odynophagia or dysphagia. No recurrent sore throats. SKIN: No history of skin rashes. No history of psoriasis. No history of skin cancer. No history of pruritus or allergy discoloration of the skin. NECK: No complaints of neck pain. No symptoms of C-spine arthritis. No swelling in the neck. No goiter. LUNGS: History of asthma and COPD. No recent symptoms of wheezing or symptoms of acute exacerbation of COPD. History of sleep apnea does not wear CPAP. No history of pulmonary embolism. No history of hemoptysis. No history of pleuritic chest pain. HEART: History of coronary artery disease as mentioned earlier history of coronary bypass graft surgery, history of FL. Atypical chest pains. Recent Saman the patient was seen in the end of November in all much ER for chest pains, and there was no acute coronary event. His cardiac catheterization in March 2018 he was delegated to medical treatment. Also the patient was again seen in the emergency room and [facility] in July 2018, and was again dedicated to medical treatment. He has a history of ischemic cardia myopathy. No recent symptoms of PND orthopnea or leg edema. No symptoms of recent heart failure. The patient states that if he walks or exerts is on does exertion which is more than mild exertion he has shortness of breath and has to rest. There is no exertional angina. He has a history of ischemic cardia myopathy. Severely reduced LV ejection fraction. History of biventricular AICD. No firing of AICD and long time. No recent symptoms of PND orthopnea or leg edema. No syncope. GI: Patient admitted with nausea and vomiting found to have perforated diverticulitis. Being treated conservatively. May require surgical intervention. History of GERD present. No history of peptic ulcer disease or GI bleed. The patient has been constipated. There is no history of jaundice or fatty food intolerance in the past. No history of ascites or cirrhosis of the liver. No history of GI bleed. MUSCULOSKELETAL: Denies arthritis or collagen vascular disease. RENAL: History of solitary kidney with left nephrectomy for renal cancer. No symptoms a UTI. No hematuria pyuria or dysuria. No symptoms of enlarged prostate. Note that the patient was admitted with a reduced renal function due to dehydration due to prerenal azotemia, which has been corrected with now the renal function being normal after hydration and antibiotics. 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 No history of headaches migraines or seizures. PSYCHIATRIC: History of depression present well controlled with medication. No anxiety. No history of suicidal or homicidal ideation. VASCULAR: No history of calf or buttock claudication. No history of DVT. HEMATOLOGICAL.: No bleeding diathesis. No clotting disorders. PHYSICAL EXAMINATION: The patient is mildly obese. At present in no acute distress. His pain is well controlled with current medical regimen. He is well-groomed. Selected Entries 12/10/18 19:50 Temperature 98.2 F Temperature Oral Source Pulse Rate 73 Respiratory 18 Rate Blood Pressure 121/65 Blood Pressure 83 Mean BP Location Left Arm BP Position Sitting O2 Sat by Pulse 97 Oximetry Oxygen Delivery Room Air Method HEAD: Head is atraumatic and normocephalic. EYES: Pupils are equal round regular reactive to light accommodation. Extraocular movements are normal, there is no conjunctival pallor, and no scleral icterus. EARS: Tympanic me mbranes are intact external auditory canals are clear. NOSE: There is no inflammation of the nasal mucous membrane there is no deviated nasal septum. MOUTH: Mucous membranes of mouth and tongue are moist, there is no ulcers in the mouth or tongue, and no bleeding from the gums. THROAT: There is no redness of the oropharynx, no exudate seen. SKIN: There is no petechia or ecchymosis. There is no rashes or lesions. NECK: Supple. There is no JVD. Carotids are equal there is no bruit. There is no lymphadenopathy. There is no goiter. Trachea central LUNGS: There is diminished air entry and prolonged expiration. Clear to auscultation bilaterally, no wheezes, rales or rhonchi. On percussion there is hyperresonance although there is no chest wall tenderness HEART: S1 and S2 are heard. S1 is of normal intensity, there is no S3 or S4 gallops. There is a systolic murmur the left sternal border and the apex. There is no rub. ABDOMEN: Slightly distended, bowel sounds are slightly decreased. There is some minimal discomfort on palpation of the lower abdominal area. No masses, and there is no rigidity, and no rebound, and no guarding. There is no hepatosplenomegaly. EXTREMITIES: Femorals are slightly diminished. There is no femoral bruits. Leg pulses are diminished. There is no pedal edema. There is no DVT or cellulitis. There is no cyanosis or clubbing. There is no calf tenderness. NEUROLOGICAL the patient is awake alert oriented 3 with no focal deficits. PSYCHIATRIC: The patient judgment and insight are intact his affect is normal. 12/09/18 12/09/18 12/09/18 09:41 09:41 13:46 WBC RBC Hgb Hct MCV MCH MCHC RDW Plt Count Seg Neutrophils % Lymphocytes % Monocytes % Eosinophils % Basophils % Absolute Neutrophils Absolute Lymphocytes Absolute Monocytes Absolute Eosinophils Absolute Basophils Sodium 140.7 Potassium 4.0 Chloride 107 Carbon Dioxide 22 Anion Gap 12 BUN 22 H Creatinine 1.55 H Est GFR (Non-Af Amer) 44 L Glucose 91 Lactic Acid Calcium Magnesium 2.3 Total Bilirubin 2.1 H Direct Bilirubin 0.5 H Neonat Total Bilirubin Not Reportable Neonat Direct Bilirubin Not Reportable Neonat Indirect Bili Not Reportable AST 89 H ALT 63 Alkaline Phosphatase 82 Total Protein 6.6 Albumin 4.1 Lipase 64.4 Stool for White Cells C. difficile Tox (PCR) NEGATIVE Influenza A (Rapid) Influenza B (Rapid) 12/09/18 12/09/18 12/10/18 13:46 16:35 05:07 WBC 7.6 RBC 4.24 L Hgb 12.5 L Hct 36.1 L MCV 85 MCH 29.5 MCHC 34.6 RDW 14.7 H Plt Count 112 L Seg Neutrophils % 81.7 H Lymphocytes % 12.8 L Monocytes % 4.8 Eosinophils % 0.6 Basophils % 0.1 Absolute Neutrophils 6.2 Absolute Lymphocytes 1.0 Absolute Monocytes 0.4 Absolute Eosinophils 0.0 Absolute Basophils 0.0 Sodium Potassium Chloride Carbon Dioxide Anion Gap BUN Creatinine Est GFR (Non-Af Amer) Glucose Lactic Acid Calcium Magnesium Total Bilirubin Direct Bilirubin Neonat Total Bilirubin Neonat Direct Bilirubin Neonat Indirect Bili AST ALT Alkaline Phosphatase Total Protein Albumin Lipase Stool for White Cells NO WBCs SEEN C. difficile Tox (PCR) Influenza A (Rapid) NEGATIVE Influenza B (Rapid) NEGATIVE 12/10/18 12/10/18 05:07 17:00 WBC RBC Hgb Hct MCV MCH MCHC RDW Plt Count Seg Neutrophils % Lymphocytes % Monocytes % Eosinophils % Basophils % Absolute Neutrophils Absolute Lymphocytes Absolute Monocytes Absolute Eosinophils Absolute Basophils Sodium 140.1 Potassium 4.1 Chloride 111 H Carbon Dioxide 22 Anion Gap 7 BUN 18 Creatinine 1.10 Est GFR (Non-Af Amer) > 60 Glucose 83 Lactic Acid 0.7 Calcium 9.5 Magnesium Total Bilirubin Direct Bilirubin Neonat Total Bilirubin Neonat Direct Bilirubin Neonat Indirect Bili AST ALT Alkaline Phosphatase Total Protein Albumin Lipase Stool for White Cells C. difficile Tox (PCR) Influenza A (Rapid) Influenza B (Rapid) Home Meds Table Aspirin [Ecotrin] 81 mg PO DAILY PRN 12/09/18 Atorvastatin Calcium [Lipitor 80 mg Tablet] 80 mg PO DAILY 12/09/18 Citalopram Hydrobromide [Celexa] 20 mg PO DAILY 12/09/18 Clopidogrel Bisulfate [Plavix 75 mg Tablet] 75 mg PO DAILY 12/09/18 Docusate Sodium [Colace 100 mg Capsule] 100 mg PO DAILY 12/09/18 Furosemide [Lasix 40 mg Tablet] 40 mg PO DAILY 12/09/18 Isosorbide Mononitrate [Imdur 60 mg Tablet.er] 60 mg PO DAILY 12/09/18 Lisinopril [Prinivil 2.5 mg Tablet] 2.5 mg PO DAILY 12/09/18 Metoprolol Succinate [Toprol Xl] 75 mg PO DAILY 12/09/18 Omeprazole 40 mg PO DAILY 12/09/18 Potassium Chloride 20 meq PO DAILY 12/09/18 Ranolazine [Ranexa] 1,000 mg PO Q12 12/09/18 12/09/18 15:56 Normal Saline 1000 ml [NaCl 0.9% 1000 ml IV Soln] 1,000 ml IV CONTINUOUS 12/09/18 16:01 Ipratropium/Albuterol Sulfate [Duoneb 3 ml Ampul] 3 ml NEB RTQ6HP PRN 12/09/18 18:21 Morphine Sulfate [Morphine 10 mg/ml Inj] 2 mg IV Q4HP PRN 12/10/18 00:00 Metronidazole 500 mg/Ns RTU [Flagyl RTU 500 mg/Ns 100Ml Premix] 500 mg in 100 ml IV Q6 12/10/18 10:00 Aspirin [Aspirin 81 mg Chewable Tablet] 81 mg PO DAILY 12/10/18 12:40 Dextrose 50%-Water [Dextrose Inj 50% Syringe (25 gm/50 ml)] 12.5 gm IV PRN PRN Dextrose 50%-Water [Dextrose Inj 50% Syringe (25 gm/50 ml)] 25 gm IV PRN PRN Dextrose [Glutose 40% Gel 15 gm Tube] 15 gm PO PRN PRN Dextrose [Glutose 40% Gel 15 gm Tube] 30 gm PO PRN PRN Glucagon,Human Recombinant [Glucagen Inj 1 mg Vial] 1 mg SUBCUT PRN PRN 12/10/18 15:00 Piperacillin Sodium/Tazobactam [Zosyn Inj 3.375 gm Vial] 3.375 gm Normal Saline [NaCl 0.9% 100 ml IV Soln] 100 ml IV Q6A RECORDS FROM [facility] DATE OF PROCEDURE: 03/17/2018 PROCEDURES: 1. Left heart catheterization. 2. Right heart catheterization. 3. Selective left and right coronary angiography 4. Selective bypass graft angiography 5. 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 Sedation monitoring for 60 min INDICATIONS: Angina, abnormal stress test 72yrs Male with CAD s/p CABG (SPICER-LAD, SVG-OM3) 2009, HTN, HLD, COPD, HFrEF EF 30-35% with thinned hypokinetic anteroseptum consistent with scar/old infarction in LAD territory. s/p ICD, renal cancer s/p left nephrectomy, CKD 3 with Cr back to baseline 1.3 now, admitted with typical angina with abnormal stress test, below. He also has features of unstable angina. He is thus referred for cath IMPRESSION: 1. Normal clinical response to pharmacologic stress 2. Equivocal electrocardiographic response during pharmacologic stress. 3. Myocardial perfusion is abnormal . There is a large sized perfusion abnormality of severe intensity involving the entire myocardium which is partially reversible. There is gut artifact and there is significant gut uptake which may decrease radiotracer delivery on stress images but having said that gut pattern looks similar between rest and stress images. I think likely this is a markedly abnormal stress test with marked ischemia throughout the myocardium other than probable mixed mod scar and ischemia in the anteroseptal and inferolateral distributions. TID ratio is elevated at 1.4. Overall very high risk findings suggestive of multivessel CAD. 4. Overall left ventricular systolic function is depressed with global wall motion abnormalities as noted above. 5. Would recommend further evaluation with coronary angiography based on high risk findings above. Results are being communicated with primary team. HEMODYNAMIC DATA: 1. Left ventricular pressure is 115/6 with end-diastolic pressure of 16 mmHg. 2. Aortic blood pressure 110/60 mmHg with a mean of 80 mmHg. 3. Right atrial pressure is 6 mmHg. 4. Right ventricular pressure is 22/7 mmHg. 5. Pulmonary arterial pressure is 28/13 mmHg with mean of 20 mmHg. 6. Pulmonary wedge catheter pressure is 11 mmHg. A wave is 13 mmHg and V wave is 15 mmHg. USING AMISH METHOD: Cardiac Output is 4.8 l/min. Cardiac index is 2.3 L/min.m2. ANGIOGRAPHIC DATA: 1. Left main coronary artery: Large caliber vessel. 70% stenosis 2. Left anterior descending coronary artery (LAD): Large caliber vessel with one prominent diagonal Prox LAD 85% stenosis, bypassed by SPICER-LAD. Distal LAD 40% stenosis after SPICER- LAD anastomosis Diag prox 85% type C stenosis, that is unprotected 3. Left circumflex coronary artery: Large caliber, codominant vessel Patent small OM1 100% occluded OM2, unprotected. 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 Distal OM is small vessel with 95% disease, not amenable to PCI 4. Right coronary artery (RCA): Large caliber dominant vessel. Small vessel DEXTER with 85% stenosis, not amenable to PCI 5. SPICER-LAD: Patent. Good distal runoff 6: SVG-OM3: Patent. Good distal runoff The patient echocardiogram done yesterday was a suboptimal study. There is probably moderate diffuse global hypokinesis with a moderately reduced LV ejection fraction of 35%. [See report] The patient monitor strip shows atrial tracking and ventricular pacing. The patient CT scan of the abdomen shows a perforated diverticulum with free air in the abdomen, under the diaphragm. IMPRESSION/RECOMMENDATION: 1. Acute abdomen with perforated diverticulitis. Patient being treated conservatively. May need surgical intervention if the patient does not improve with current medical regimen. 2. Coronary artery disease, history of FL, history of coronary bypass graft surgery. At present with no anginal symptoms. The patient is not on any of his p.o. cardiac medications due to the patient being n.p.o. Would recommend adding nitro glycerin ointment at 1 inch to chest wall every 6 hours. 3. Ischemic cardia myopathy with moderately reduced LV ejection fraction. Compensated with no evidence of acute heart failure. Close observation to watch for any decompensation. 4. Biventricular AICD. 5. Hypertension: Blood pressure well controlled. 6. History of asthma and COPD: At present at baseline, without acute asthmatic attack or acute exacerbation of COPD. Continue to observe the patient for any untoward development of symptoms 7. Sleep apnea: Would recommend empiric BiPAP at night. 8. History of depression: At present the patient appears to be stable, off his antidepressants. 9. GERD: At present asymptomatic. 10. Hyperlipidemia: At present statin being held, due to the patient being n.p.o. 11. Preoperative cardiac risk assessment for surgery if done. MEDICATIONS have been reviewed. Management plan discussed with attending physician on the case. THE PATIENT WILL BE HIGH CARDIAC RISK FOR HIS ABDOMINAL SURGERY, SINCE THIS WOULD ENTAIL AND AN emergent SITUATION. ALTHOUGH I CARDIAC RISK, THE RISK IS NOT PROHIBITIVELY HIGH RISK. We will check the patient's EKG, and portable chest x-ray in the a.m. Medical decision making is of high complexity Will follow the patient closely...
[2018-12-11] MEDS: METRONIDAZOLE 500 MG/NS RTU 500 MG/100 ML RTUPB IV SCH ×5 (01:48→23:06)
[2018-12-11] MEDS: PIPERACILLIN SODIUM/TAZOBACTAM 3.375 GM in NORMAL SALINE 100 ML IV SCH ×4 (03:20→21:48)
[2018-12-11] MEDS: NITROGLYCERIN 2% OINTMENT 1 GM PACKET TP SCH ×4 (06:11→23:06)
--- NOTE | 2018-12-11 08:31 | RADIOLOGY REPORT (SQ) ---
EXAM DESCRIPTION: CHEST SINGLE VIEW COMPLETED DATE/TIME: 12/11/2018 7:31 am REASON FOR STUDY: COPD /CAD / Pre-Op COMPARISON: 12/06/2018 EXAM PARAMETERS: NUMBER OF VIEWS: One view. TECHNIQUE: Single frontal radiographic view of the chest acquired. RADIATION DOSE: NA LIMITATIONS: None. FINDINGS: LUNGS AND PLEURA: No opacities, masses or pneumothorax. No pleural effusion. MEDIASTINUM AND HILAR STRUCTURES: No masses. Contour normal. HEART AND VASCULAR STRUCTURES: Heart remains enlarged. CABG hardware. BONES: No acute findings. HARDWARE: Pacemaker defibrillator unchanged. OTHER: No other significant finding. IMPRESSION: Cardiac enlargement without failure. No interval change. TECHNICAL DOCUMENTATION: JOB ID: [id number] [employer]- All Rights Reserved Reading location - IP/workstation name: [email or web address]
[2018-12-11] MEDS: ASPIRIN 81 MG TABLET, CHEWABLE PO SCH (09:22)
[2018-12-11] MEDS: NORMAL SALINE 1000 ML 1,000 ML IV PRN (09:23)
--- NOTE | 2018-12-11 09:57 | PDOC PROGRESS REPORT ---
Subjective Progress Note for:: 12/11/18 Reason For Visit: PERFORATED DIVERTICULITIS,ACUTE DIARRHEA Physical Exam Vital Signs: Temp Pulse Resp BP Pulse Ox 98.3 F 74 16 116/63 95 12/11/18 07:54 12/11/18 07:54 12/11/18 07:54 12/11/18 07:54 12/11/18 07:54 Intake & Output 12/10/18 12/11/18 12/12/18 06:59 06:59 06:59 Intake Total 2400 1604 1000 Output Total 975 Balance 2400 629 1000 Weight 103 kg 104.4 kg General appearance: PRESENT: no acute distress Head exam: PRESENT: atraumatic Eye exam: PRESENT: EOMI Mouth exam: PRESENT: moist Neck exam: PRESENT: full ROM Respiratory exam: PRESENT: clear to auscultation debbie Cardiovascular exam: PRESENT: RRR GI/Abdominal exam: PRESENT: other - 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 No acute findings in the chest. Abdomen/Pelvis CT 12/09/18 18:21 IMPRESSION: Sigmoid Diverticulitis with perforation. Free air is seen in the left lower quadrant as well as extending through the inguinal ligament into the scrotum. Foot X-Ray 12/10/18 17:11 IMPRESSION: NO FRACTURE. Chest X-Ray 12/11/18 06:00 IMPRESSION: Cardiac enlargement without failure. No interval change. Assessment & Plan - Plan Summary Plan Summary: no cbc today, will reorder abd softer, less tender remains afeb now passing flatus and stool appreciated cardiology input pt is high risk for surgery although he is improving with medical management plan is to repeat ct scan in am to reeval.
--- NOTE | 2018-12-11 10:21 | RADIOLOGY REPORT (SQ) ---
EXAM DESCRIPTION: CT ABD/PELVIS NO ORAL OR IV COMPLETED DATE/TIME: 12/11/2018 10:09 am REASON FOR STUDY: reassess perforated diverticulitis COMPARISON: 12/09/2018 TECHNIQUE: CT scan of the abdomen and pelvis performed without intravenous or oral contrast. Images reviewed with lung, soft tissue, and bone windows. Reconstructed coronal and sagittal MPR images revi ewed. All images stored on PACS. All CT scanners at this facility use dose modulation, iterative reconstruction, and/or weight based d osing when appropriate to reduce radiation dose to as low as reasonably achievable (ALARA). [facility]: Dose Right [facility]: CareDose [facility]: Dose Right [facility]: Teradose 4D [facility]: Smart Nascent Surgical RADIATION DOSE: CT Rad equipment meets quality standard of care and radiation dose reduction techniq ues were employed. CTDIvol: 17.7 mGy. DLP: 1027 mGy-cm.mGy. LIMITATIONS: None. FINDINGS: LOWER CHEST: No significant findings. No nodules or infiltrates. NON-CONTRASTED LIVER, SPLEEN, ADRENALS: Evaluation limited by lack of IV contrast. No identified sign ificant masses. PANCREAS: No masses. No peripancreatic inflammatory changes. GALLBLADDER: Surgically absent. RIGHT KIDNEY AND URETER: Well circumscribed low density mass(es) statistically most likely to be cyst (s). Assessment limited by lack of iv contrast. No significant calcifications. No hydronephrosis or hydroureter. LEFT KIDNEY AND URETER: Surgically absent. AORTA AND RETROPERITONEUM: No aneurysm. No retroperitoneal masses or adenopathy. BOWEL AND PERITONEAL CAVITY: Again there is evidence for diverticulitis in the left lower quadrant as sociated with the distal descending and sigmoid colons. Pericolonic fat stranding. Few scattered ar eas of free intraperitoneal air. Slightly less prominent than previous. There is air extending thro ugh the inguinal canal into the scrotum. Slightly less. APPENDIX: Not visualized. PELVIS, BLADDER, AND ABDOMINAL WALL:No abnormal masses. No free fluid. Bladder normal. BONES: No significant findings. OTHER: No other significant finding. IMPRESSION: Diverticulitis with localized perforation and left lower quadrant. The amount of free a ir slightly less than previous stable inflammatory changes. There is still air in the scrotum via t he inguinal canal, but less than previous. COMMENT: Quality ID # [id number]: Final reports with documentation of one or more dose reduction techniques (e.g., Automated exposure control, adjustment of the mA and/or kV according to patient size, use of iterative reconstruction technique) TECHNICAL DOCUMENTATION: JOB ID: [id number] [employer]- All Rights Reserved Reading location - IP/workstation name: [email or web address]
--- NOTE | 2018-12-11 10:50 | PDOC PROGRESS REPORT ---
Subjective Progress Note for:: 12/11/18 Subjective:: BETSY AGUDELO is a 73 year old male with a PMH of CAD with prior stenting x 2 (2006, 2007), prior CABG, CHF (reports his EF years ago was 25%), S/P pacemaker placement, ?renal cell CA S/P left sided nephrectomy [facility] who presented with vomiting and diarrhea. He was found to have ileus on abdominal series. 12/10: His abdominal CT came back remarkable for a perforated diverticulitis. Surgery evaluated patient and recommended conservative management for now as he was deemed high surgical risk. This morning, he is sitting on a chair and says the abdomninal pain has slightly improved. No nausea or vomiting. He did have a loose stool this morning. 12/11: No acute event overnight. He has not required morphine overnight. He says he still has LLQ pain but this is slightly improved this morning. He is passing out gas. No nausea or vomiting. Reason For Visit: PERFORATED DIVERTICULITIS,ACUTE DIARRHEA Physical Exam Vital Signs: Temp Pulse Resp BP Pulse Ox 98.3 F 74 16 116/63 95 12/11/18 07:54 12/11/18 07:54 12/11/18 07:54 12/11/18 07:54 12/11/18 07:54 Intake & Output 12/10/18 12/11/18 12/12/18 06:59 06:59 06:59 Intake Total 2400 1604 1100 Output Total 975 Balance 2400 629 1100 Weight 227 lb 1.218 oz 230 lb 2.601 oz General appearance: PRESENT: no acute distress, well-developed, well-nourished Head exam: PRESENT: atraumatic, normocephalic Eye exam: PRESENT: conjunctiva pink, EOMI, PERRLA. ABSENT: scleral icterus Ear exam: PRESENT: normal external ear exam Mouth exam: PRESENT: moist, tongue midline Neck exam: ABSENT: carotid bruit, JVD, lymphadenopathy, thyromegaly Respiratory exam: PRESENT: clear to auscultation debbie. ABSENT: rales, rhonchi, wheezes Cardiovascular exam: PRESENT: RRR, systolic murmur. ABSENT: diastolic murmur, rubs Pulses: PRESENT: normal dorsalis pedis pul GI/Abdominal exam: PRESENT: normal bowel sounds, soft, tenderness - direct LLQ tenderness, no rebound. ABSENT: distended, guarding, mass, organolmegaly, rebound Rectal exam: PRESENT: deferred Neurological exam: PRESENT: alert, awake, oriented to person, oriented to place, oriented to time, oriented to situation, CN II-XII grossly intact. ABSENT: motor sensory deficit Results Laboratory Results: 12/10/18 05:07 12/10/18 05:07 12/10/18 17:00 Lactic Acid 0.7 Impressions: Acute Abdomen Series 12/09/18 09:52 IMPRESSION: Probable ileus. No acute findings in the chest. Foot X-Ray 12/10/18 17:11 IMPRESSION: NO FRACTURE. Chest X-Ray 12/11/18 06:00 IMPRESSION: Cardiac enlargement without failure. No interval change. Abdomen/Pelvis CT 12/11/18 09:41 IMPRESSION: Diverticulitis with localized perforation and left lower quadrant. The amount of free air slightly less than previous stable inflammatory changes. There is still air in the scrotum via the inguinal canal, but less than previous. Assessment & Plan - Diagnosis (1) Perforated diverticulum Is this a current diagnosis for this admission?: Yes Plan: Surgery following. Recommended conservative management at this time. Continue IV antibitotics. Abdominal pain has slightly improved. Repeated CT of the abdomen this morning which shows improvement in the amount of free air. (2) Acute diarrhea Is this a current diagnosis for this admission?: Yes Plan: Secondary to acute diverticulitis. C difficile was negative. Abdominal series showed nonobstructive pattern with ileus. He was given a liter of fluid bolus in the ER. Keep IV fluids at 50 cc/hr for now as he reports his last known EF was 25% years ago. (3) Ileus of unspecified type Is this a current diagnosis for this admission?: Yes Plan: Secondary to perforated diverticulitis. (4) Acute kidney injury Is this a current diagnosis for this admission?: Yes Plan: Resolved with IV fluids. - Time Time Spent with patient: 25-34 minutes
[2018-12-11 11:47] LABS: ABSOLUTE EOSINOPHILS # (AUTO) 0.1 10^3/uL (0.0-0.6); ABSOLUTE LYMPHOCYTES (AUTO) 0.6 10^3/uL (0.5-4.7); ABSOLUTE MONOCYTES (AUTO) 0.3 10^3/uL (0.1-1.4); ABSOLUTE NEUT (AUTO) 3.1 10^3/uL (1.7-8.2); BASOPHILS % (AUTO) 0.5 % (0-2); EOSINOPHILS % (AUTO) 2.3 % (0-6); HEMATOCRIT 37.3 % (37.9-51.0); HEMOGLOBIN 12.8 g/dL (13.5-17.0); LYMPHOCYTES % (AUTO) 14.9 % (13-45); MEAN CORPUSCULAR HGB CONC 34.2 g/dL (32.0-36.0); MEAN CORPUSCULAR VOLUME 85 fl (80-97); MONOCYTES % (AUTO) 6.5 % (3-13); PLATELET COUNT 126 10^3/uL (150-450); RED CELL DISTRIBUTION WIDTH 14.1 % (11.5-14.0); SEGMENTED NEUTROPHILS % (AUTO) 75.8 % (42-78); TOTAL CELLS COUNTED % (AUTO) 100 %; WHITE BLOOD COUNT 4.1 10^3/uL (4.0-10.5)
[2018-12-11 12:04] LABS: ANION GAP 8 (5-19); BLOOD UREA NITROGEN 16 mg/dL (7-20); CALCIUM 9.5 mg/dL (8.4-10.2); CARBON DIOXIDE 23 mmol/L (22-30); CHLORIDE 111 mmol/L (98-107); GLUCOSE 84 mg/dL (75-110); SODIUM 141.6 mmol/L (137-145)
--- NOTE | 2018-12-11 18:40 | Progress Note ---
Provider Note Provider Note: CARDIOLOGY PROGRESS NOTE by Dr. Ema Dsouza on 12/11/2018. SUBJECTIVE: The patient denies any chest pain or discomfort. There is no anginal symptoms. There is no PND orthopnea or leg edema. There is no palpitations. There is no arrhythmias seen on the monitor. There is no leg edema. His abdominal pain is much improved. There is no nausea or vomiting. The patient remains afebrile. With the permission of the surgicalist Dr. Neves, the patient has been started on beta-marilia and aspirin. We will also start restart the patient's GOLDIE inhibitor. Will this start the patient on topical nitrates. PHYSICAL EXAMINATION: The patient is moderately obese. He is well-groomed. He is in no acute distress. Selected Entries 12/11/18 11:31 Temperature 98.2 F Temperature Oral Source Pulse Rate 70 Respiratory 16 Rate Blood Pressure 114/61 Blood Pressure 78 Mean BP Location Left Arm BP Position Supine O2 Sat by Pulse 97 Oximetry Oxygen Delivery Room Air Method HEAD: Head is atraumatic and normocephalic. EYES: Pupils are equal round regular reactive to light accommodation. Extraocular movements are normal, there is no conjunctival pallor, and no scleral icterus. EARS: Tympanic membranes are intact external auditory canals are clear. NOSE: There is no inflammation of the nasal mucous membrane there is no deviated nasal septum. MOUTH: Mucous membranes of mouth and tongue are moist, there is no ulcers in the mouth or tongue, and no bleeding from the gums. THROAT: There is no redness of the oropharynx, no exudate seen. SKIN: There is no petechia or ecchymosis. There is no rashes or lesions. NECK: Supple. There is no JVD. Carotids are equal there is no bruit. There is no lymphadenopathy. There is no goiter. Trachea central LUNGS: There is diminished air entry and prolonged expiration. Clear to auscultation bilaterally, no wheezes, rales or rhonchi. On percussion there is hyperresonance although there is no chest wall tenderness HEART: S1 and S2 are heard. S1 is of normal intensity, there is no S3 or S4 gallops. There is a systolic murmur the left sternal border and the apex. There is no rub. ABDOMEN: Slightly distended, bowel sounds are slightly decreased. There is some minimal discomfort on palpation of the lower abdominal area. No masses, and there is no rigidity, and no rebound, and no guarding. There is no hepatosplenomegaly. EXTREMITIES: Femorals are slightly diminished. There is no femoral bruits. Leg pulses are diminished. There is no pedal edema. There is no DVT or cellulitis. There is no cyanosis or clubbing. There is no calf tenderness. NEUROLOGICAL the patient is awake alert oriented 3 with no focal deficits. PSYCHIATRIC: The patient judgment and insight are intact his affect is normal. 12/11/18 12/11/18 11:10 11:10 WBC 4.1 RBC 4.40 Hgb 12.8 L Hct 37.3 L MCV 85 MCH 29.0 MCHC 34.2 RDW 14.1 H Plt Count 126 L Sodium 141.6 Potassium 4.0 Chloride 111 H Carbon Dioxide 23 Anion Gap 8 BUN 16 Creatinine 1.06 Est GFR (Non-Af Amer) > 60 Glucose 84 Calcium 9.5 CHEST X-ray: Shows cardiac enlargement without failure. IMPRESSION/RECOMMENDATION: 1. Acute abdomen with perforated diverticulitis. Patient being treated conservatively. May need surgical intervention if the patient does not improve with current medical regimen. 2. Coronary artery disease, history of HI, history of coronary bypass graft s urgery. At present with no anginal symptoms. The patient is not on any of his p.o. cardiac medications due to the patient being n.p.o. Would recommend adding nitro glycerin ointment at 1 inch to chest wall every 6 hours. 3. Ischemic cardia myopathy with moderately reduced LV ejection fraction. Compensated with no evidence of acute heart failure. Close observation to watch for any decompensation. 4. Biventricular AICD. 5. Hypertension: Blood pressure well controlled. 6. History of asthma and COPD: At present at baseline, without acute asthmatic attack or acute exacerbation of COPD. Continue to observe the patient for any untoward development of symptoms 7. Sleep apnea: Would recommend empiric BiPAP at night. 8. History of depression: At present the patient appears to be stable, off his antidepressants. 9. GERD: At present asymptomatic. 10. Hyperlipidemia: At present statin being held, due to the patient being n.p.o. 11. Preoperative cardiac risk assessment for surgery if done. Judging from the surgical list notes the patient may be just treated conservatively, without surgery. MEDICATIONS have been reviewed. Management plan discussed with attending physi fidencio on the case. THE PATIENT WILL BE HIGH CARDIAC RISK FOR HIS ABDOMINAL SURGERY, SINCE THIS WOULD ENTAIL AND AN emergent SITUATION. ALTHOUGH I CARDIAC RISK, THE RISK IS NOT PROHIBITIVELY HIGH RISK
[2018-12-12] MEDS: PIPERACILLIN SODIUM/TAZOBACTAM 3.375 GM in NORMAL SALINE 100 ML IV SCH ×4 (02:38→21:39)
[2018-12-12] MEDS: NITROGLYCERIN 2% OINTMENT 1 GM PACKET TP SCH ×3 (05:30→17:50)
[2018-12-12] MEDS: METRONIDAZOLE 500 MG/NS RTU 500 MG/100 ML RTUPB IV SCH ×4 (05:30→23:24)
[2018-12-12] MEDS: NORMAL SALINE 1000 ML 1,000 ML IV PRN (05:30)
--- NOTE | 2018-12-12 06:13 | EKG REPORT ---
SEVERITY:- ABNORMAL ECG - ATRIAL-SENSED VENTRICULAR-PACED RHYTHM : Confirmed by: Octaviano Juares MD 12-Dec-2018 06:12:45
[2018-12-12 09:48] LABS: ABSOLUTE EOSINOPHILS # (AUTO) 0.1 10^3/uL (0.0-0.6); ABSOLUTE LYMPHOCYTES (AUTO) 0.7 10^3/uL (0.5-4.7); ABSOLUTE MONOCYTES (AUTO) 0.2 10^3/uL (0.1-1.4); ABSOLUTE NEUT (AUTO) 2.8 10^3/uL (1.7-8.2); BASOPHILS % (AUTO) 0.6 % (0-2); EOSINOPHILS % (AUTO) 3.1 % (0-6); HEMATOCRIT 38.2 % (37.9-51.0); LYMPHOCYTES % (AUTO) 19.3 % (13-45); MEAN CORPUSCULAR HGB CONC 34.1 g/dL (32.0-36.0); MEAN CORPUSCULAR VOLUME 85 fl (80-97); MONOCYTES % (AUTO) 5.3 % (3-13); PLATELET COUNT 143 10^3/uL (150-450); RED BLOOD COUNT 4.49 10^6/uL (4.35-5.55); RED CELL DISTRIBUTION WIDTH 14.5 % (11.5-14.0); SEGMENTED NEUTROPHILS % (AUTO) 71.7 % (42-78); TOTAL CELLS COUNTED % (AUTO) 100 %; WHITE BLOOD COUNT 3.9 10^3/uL (4.0-10.5)
[2018-12-12] MEDS ORDERED: LISINOPRIL 5 MG TABLET PO SCH (10:00)
[2018-12-12] MEDS ORDERED: METOPROLOL SUCCINATE 25 MG TAB.SR.24H PO SCH (10:00)
[2018-12-12 10:14] LABS: ANION GAP 10 (5-19); BLOOD UREA NITROGEN 14 mg/dL (7-20); CALCIUM 9.6 mg/dL (8.4-10.2); CARBON DIOXIDE 22 mmol/L (22-30); CHLORIDE 111 mmol/L (98-107); GLUCOSE 98 mg/dL (75-110); POTASSIUM 3.8 mmol/L (3.6-5.0); SODIUM 143.1 mmol/L (137-145)
--- NOTE | 2018-12-12 10:21 | PDOC PROGRESS REPORT ---
Subjective Progress Note for:: 12/12/18 Subjective:: Patient states he feels better and wants to start a diet. Reason For Visit: PERFORATED DIVERTICULITIS,ACUTE DIARRHEA v Physical Exam Vital Signs: Temp Pulse Resp BP Pulse Ox 97.7 F 66 18 121/57 L 97 12/12/18 07:34 12/12/18 07:34 12/12/18 07:34 12/12/18 07:34 12/12/18 07:34 Intake & Output 12/11/18 12/12/18 12/13/18 06:59 06:59 06:59 Intake Total 1604 2963 Output Total 975 650 Balance 629 2313 Weight 104.4 kg 104.8 kg General appearance: PRESENT: no acute distress GI/Abdominal exam: PRESENT: other - Abdomen is soft, no peritoneal signs no rigidity. Only minimal suprapubic and left lower quadrant tenderness. I cannot appreciate any crepitance. Results Laboratory Results: 12/12/18 09:25 12/11/18 12/11/18 12/12/18 11:10 11:10 09:25 WBC 4.1 3.9 L RBC 4.40 4.49 Hgb 12.8 L 13.0 L Hct 37.3 L 38.2 MCV 85 85 MCH 29.0 29.0 MCHC 34.2 34.1 RDW 14.1 H 14.5 H Plt Count 126 L 143 L Seg Neutrophils % 75.8 71.7 Lymphocytes % 14.9 19.3 Monocytes % 6.5 5.3 Eosinophils % 2.3 3.1 Basophils % 0.5 0.6 Absolute Neutrophils 3.1 2.8 Absolute Lymphocytes 0.6 0.7 Absolute Monocytes 0.3 0.2 Absolute Eosinophils 0.1 0.1 Absolute Basophils 0.0 0.0 Sodium 141.6 Potassium 4.0 Chloride 111 H Carbon Dioxide 23 Anion Gap 8 BUN 16 Creatinine 1.06 Est GFR ( Amer) > 60 Est GFR (Non-Af Amer) > 60 Glucose 84 Calcium 9.5 12/09/18 13:46 Stool - Stool - Final 12/09/18 13:46 Stool - Stool Stool Culture - Final NO SALMONELLA, SHIGELLA, CAMPYLOBACTER, OR E.COLI 0157 RECOVERED. NEGATIVE FOR SHIGA TOXINS 1&2. Impressions: Acute Abdomen Series 12/09/18 09:52 IMPRESSION: Probable ileus. No acute findings in the chest. Foot X-Ray 12/10/18 17:11 IMPRESSION: NO FRACTURE. Chest X-Ray 12/11/18 06:00 IMPRESSION: Cardiac enlargement without failure. No interval change. Abdomen/Pelvis CT 12/11/18 09:41 IMPRESSION: Diverticulitis with localized perforation and left lower quadrant. The amount of free air slightly less than previous stable inflammatory changes. There is still air in the scrotum via the inguinal canal, but less than previous. Assessment & Plan - Diagnosis (1) Diverticulitis Is this a current diagnosis for this admission?: Yes Plan: Impression: Clinically improved on intravenous antibiotics, bowel rest. No indication for surgical intervention Conditions: 1. We will start clear liquids today. 2. Hopefully can advance diet as tolerated; duration of intravenous antibiotics should be limited to 10 days to reduce risk of C. difficile infection. 3. Will see patient in the morning, check on progress
--- NOTE | 2018-12-12 11:04 | PDOC PROGRESS REPORT ---
Subjective Progress Note for:: 12/12/18 Subjective:: BETSY AGUDELO is a 73 year old male with a PMH of CAD with prior stenting x 2 (2006, 2007), prior CABG, CHF (reports his EF years ago was 25%), S/P pacemaker placement, ?renal cell CA S/P left sided nephrectomy who comes from [facility] who presented with vomiting and diarrhea. He was found to have ileus on abdominal series. 12/10: His abdominal CT came back remarkable for a perforated diverticulitis. Surgery evaluated patient and recommended conservative management for now as he was deemed high surgical risk. This morning, he is sitting on a chair and says the abdomninal pain has slightly improved. No nausea or vomiting. He did have a loose stool this morning. 23: No acute event overnight. He has not required morphine overnight. He says he still has LLQ pain but this is slightly improved this morning. He is passing out gas. No nausea or vomiting. 22: He did say he had 3 episodes of loose stools overnight. Currently NPO. He says his abdominal pain has continue to slightly improved from yesterday. Repeat CT yesterday shows slight improvement of free air. He was evaluated by surgery this morning and diet was advanced to clear liquid. Reason For Visit: PERFORATED DIVERTICULITIS,ACUTE DIARRHEA Physical Exam Vital Signs: Temp Pulse Resp BP Pulse Ox 97.7 F 66 18 121/57 L 97 12/12/18 07:34 12/12/18 07:34 12/12/18 07:34 12/12/18 07:34 12/12/18 07:34 Intake & Output 12/11/18 12/12/18 12/13/18 06:59 06:59 06:59 Intake Total 1604 2963 100 Output Total 975 650 Balance 629 2313 100 Weight 230 lb 2.601 oz 231 lb 0.711 oz General appearance: PRESENT: no acute distress, well-developed, well-nourished Head exam: PRESENT: atraumatic, normocephalic Eye exam: PRESENT: conjunctiva pink, EOMI, PERRLA. ABSENT: scleral icterus Ear exam: PRESENT: normal external ear exam Mouth exam: PRESENT: moist, tongue midline Neck exam: ABSENT: carotid bruit, JVD, lymphadenopathy, thyromegaly Respiratory exam: PRESENT: clear to auscultation debbie. ABSENT: rales, rhonchi, wheezes Cardiovascular exam: PRESENT: RRR. ABSENT: diastolic murmur, rubs Pulses: PRESENT: normal dorsalis pedis pul GI/Abdominal exam: PRESENT: normal bowel sounds, soft, tenderness - direct LLQ tenderness, no rebound. ABSENT: distended, guarding, mass, organolmegaly, rebound Rectal exam: PRESENT: deferred Neurological exam: PRESENT: alert, awake, oriented to person, oriented to place, oriented to time, oriented to situation, CN II-XII grossly intact. ABSENT: motor sensory deficit Results Laboratory Results: 12/12/18 09:25 12/12/18 09:25 12/11/18 12/11/18 12/12/18 11:10 11:10 09:25 WBC 4.1 3.9 L RBC 4.40 4.49 Hgb 12.8 L 13.0 L Hct 37.3 L 38.2 MCV 85 85 MCH 29.0 29.0 MCHC 34.2 34.1 RDW 14.1 H 14.5 H Plt Count 126 L 143 L Seg Neutrophils % 75.8 71.7 Lymphocytes % 14.9 19.3 Monocytes % 6.5 5.3 Eosinophils % 2.3 3.1 Basophils % 0.5 0.6 Absolute Neutrophils 3.1 2.8 Absolute Lymphocytes 0.6 0.7 Absolute Monocytes 0.3 0.2 Absolute Eosinophils 0.1 0.1 Absolute Basophils 0.0 0.0 Sodium 141.6 Potassium 4.0 Chloride 111 H Carbon Dioxide 23 Anion Gap 8 BUN 16 Creatinine 1.06 Est GFR ( Amer) > 60 Est GFR (Non-Af Amer) > 60 Glucose 84 Calcium 9.5 12/12/18 09:25 WBC RBC Hgb Hct MCV MCH MCHC RDW Plt Count Seg Neutrophils % Lymphocytes % Monocytes % Eosinophils % Basophils % Absolute Neutrophils Absolute Lymphocytes Absolute Monocytes Absolute Eosinophils Absolute Basophils Sodium 143.1 Potassium 3.8 Chloride 111 H Carbon Dioxide 22 Anion Gap 10 BUN 14 Creatinine 0.97 Est GFR ( Amer) > 60 Est GFR (Non-Af Amer) > 60 Glucose 98 Calcium 9.6 12/09/18 13:46 Stool - Stool - Final 12/09/18 13:46 Stool - Stool Stool Culture - Final NO SALMONELLA, SHIGELLA, CAMPYLOBACTER, OR E.COLI 0157 RECOVERED. NEGATIVE FOR SHIGA TOXINS 1&2. Impressions: Acute Abdomen Series 12/09/18 09:52 IMPRESSION: Probable ileus. No acute findings in the chest. Foot X-Ray 12/10/18 17:11 IMPRESSION: NO FRACTURE. Chest X-Ray 12/11/18 06:00 IMPRESSION: Cardiac enlargement without failure. No interval change. Abdomen/Pelvis CT 12/11/18 09:41 IMPRESSION: Diverticulitis with localized perforation and left lower quadrant. The amount of free air slightly less than previous stable inflammatory changes. There is still air in the scrotum via the inguinal canal, but less than previous. Assessment & Plan - Diagnosis (1) Perforated diverticulum Is this a current diagnosis for this admission?: Yes Plan: Surgery following. Recommended conservative management at this time. Continue IV antibitotics. Abdominal pain has slightly improved. 2/2: Repeated CT of the abdomen this morning which shows improvement in the amount of free air. 2/3: Diet advanced to clear liquid by surgery. Noted recommendation for a ntibiotic duration of 10 days. (2) Acute diarrhea Is this a current diagnosis for this admission?: Yes Plan: Secondary to acute diverticulitis. C difficile was negative. Abdominal series showed nonobstructive pattern with ileus. He was given a liter of fluid bolus in the ER. Keep IV fluids at 50 cc/hr for now as he reports his last known EF was 25% years ago. (3) Ileus of unspecified type Is this a current diagnosis for this admission?: Yes Plan: Secondary to perforated diverticulitis. (4) Acute kidney injury Is this a current diagnosis for this admission?: Yes Plan: Resolved with IV fluids. - Time Time Spent with patient: 25-34 minutes
[2018-12-12] MEDS: ASPIRIN 81 MG TABLET, CHEWABLE PO SCH (13:49)
--- NOTE | 2018-12-12 20:28 | Progress Note ---
Provider Note Provider Note: CARDIOLOGY PROGRESS NOTE by Dr. Ema Dsouza on 12/12/2018. SUBJECTIVE: The patient has no chest pain or discomfort. He has no anginal symptoms. There is no PND orthopnea or leg edema. There is no palpitations. There is no firing of his AICD. There is no ventricular arrhythmia seen on the monitor. The patient denies any abdominal pain. There is no nausea vomiting. From the surgical list note today the patient has no present indication for any surgery. There is no TIA CVA symptoms. SUBJECTIVE: The patient is moderately obese. In no acute distress. He is well- groomed. Selected Entries 12/11/18 20:16 Temperature 97.9 F Temperature Oral Source Pulse Rate 71 Respiratory 20 Rate Blood Pressure 139/58 H Blood Pressure 85 Mean O2 Sat by Pulse 100 Oximetry Oxygen Delivery Room Air Method HEAD: Head is atraumatic and normocephalic. EYES: Pupils are equal round regular reactive to light accommodation. Extraocular movements are normal, there is no conjunctival pallor, and no scleral icterus. EARS: Tympanic membranes are intact external auditory canals are clear. NOSE: There is no inflammation of the nasal mucous membrane there is no deviated nasal septum. MOUTH: Mucous membranes of mouth and tongue are moist, there is no ulcers in the mouth or tongue, and no bleeding from the gums. THROAT: There is no redness of the oropharynx, no exudate seen. SKIN: There is no petechia or ecchymosis. There is no rashes or lesions.NECK: Supple. There is no JVD. Carotids are equal there is no bruit. There is no lymphadenopathy. There is no goiter. Trachea central. LUNGS: There is diminished air entry and prolonged expiration. Clear to auscultation bilaterally, no wheezes, rales or rhonchi. On percussion there is hyperresonance although there is no chest wall tenderness HEART: S1 and S2 are heard. S1 is of normal intensity, there is no S3 or S4 gallops. There is a systolic murmur the left sternal border and the apex. There is no rub. ABDOMEN: Slightly distended, bowel sounds are slightly decreased. There is some minimal discomfort on palpation of the lower abdominal area. No masses, and there is no rigidity, and no rebound, and no guarding. There is no hepatosplenomegaly. EXTREMITIES: Femorals are slightly diminished. There is no femoral bruits. Leg pulses are diminished. There is no pedal edema. There is no DVT or cellulitis. There is no cyanosis or clubbing. There is no calf tenderness.NEUROLOGICAL the patient is awake alert oriented 3 with no focal deficits. PSYCHIATRIC: The patient judgment and insight are intact his affect is normal. 12/12/18 12/12/18 09:25 09:25 WBC 3.9 L RBC 4.49 Hgb 13.0 L Hct 38.2 MCV 85 MCH 29.0 MCHC 34.1 RDW 14.5 H Plt Count 143 L Seg Neutrophils % 71.7 Sodium 143.1 Potassium 3.8 Chloride 111 H Carbon Dioxide 22 Anion Gap 10 BUN 14 Creatinine 0.97 Est GFR (Non-Af Amer) > 60 Glucose 98 Calcium 9.6 EKG: Shows atrial sensed and ventricular paced rhythm. IMPRESSION/RECOMMENDATION: 1. Acute abdomen with perforated diverticulitis. Patient being treated conservatively. The patient has improved remarkably. As per the surgical is not the patient is not going to be having surgery at this time. 2. Coronary artery disease, history of NV, history of coronary bypass graft surgery. At present with no anginal symptoms. She is tolerating the beta- marilia. He is also tolerating the lisinopril will increase both the beta- marilia and the lisinopril to 25 mg p.o. every 12 hours, and 2.5 mg p.o. every 12 hours respectively. We will stop the patient's Nitropatch. And start the patient on Imdur. 3. Ischemic cardia myopathy with moderately reduced LV ejection fraction. Compensated with no evidence of acute heart failure. Close observation to watch for any decompensation. 4. Biventricular AICD. 5. Hypertension: Blood pressure well controlled. 6. History of asthma and COPD: At present at baseline, without acute asthmatic attack or acute exacerbation of COPD. Continue to observe the patient for any untoward development of symptoms 7. Sleep apnea: Would recommend empiric BiPAP at night. 8. History of depression: At present the patient appears to be stable, off his antidepressants. 9. GERD: At present asymptomatic. 10. Hyperlipidemia: At present statin being held, due to the patient being n.p.o. MEDICATIONS have been reviewed. Medications adjusted/added. Management plan discussed with attending physician on the case. Medical decision making is of moderate complexity. Patient not going to have surgery, hence will sign off since cardiac status is stable. If the patient so desires he can follow-up with me in the office. Note medical decision making is of moderate complexity. 40 minutes spent on this patient, of which 50% was. With direct patient care. Will sign off. Thank you for consulting me on this case. T
[2018-12-12] MEDS: METOPROLOL SUCCINATE 25 MG TAB.SR.24H PO SCH (21:32)
[2018-12-12] MEDS: LISINOPRIL 5 MG TABLET PO SCH (21:32)
[2018-12-13] MEDS: PIPERACILLIN SODIUM/TAZOBACTAM 3.375 GM in NORMAL SALINE 100 ML IV SCH ×4 (02:54→21:51)
[2018-12-13] MEDS: METRONIDAZOLE 500 MG/NS RTU 500 MG/100 ML RTUPB IV SCH ×3 (05:26→17:11)
[2018-12-13] MEDS: ASPIRIN 81 MG TABLET, CHEWABLE PO SCH (09:46)
[2018-12-13] MEDS: LISINOPRIL 5 MG TABLET PO SCH ×2 (09:46→21:49)
[2018-12-13] MEDS: METOPROLOL SUCCINATE 25 MG TAB.SR.24H PO SCH ×2 (09:46→21:50)
[2018-12-13] MEDS: ISOSORBIDE MONONITRATE 30 MG TAB.ER.24H PO SCH (09:46)
[2018-12-13 11:15] LABS: ABSOLUTE EOSINOPHILS # (AUTO) 0.1 10^3/uL (0.0-0.6); ABSOLUTE LYMPHOCYTES (AUTO) 0.8 10^3/uL (0.5-4.7); ABSOLUTE MONOCYTES (AUTO) 0.3 10^3/uL (0.1-1.4); ABSOLUTE NEUT (AUTO) 2.8 10^3/uL (1.7-8.2); BASOPHILS % (AUTO) 0.4 % (0-2); EOSINOPHILS % (AUTO) 2.4 % (0-6); HEMATOCRIT 34.7 % (37.9-51.0); LYMPHOCYTES % (AUTO) 19.6 % (13-45); MEAN CORPUSCULAR HEMOGLOBIN 29.1 pg (27.0-33.4); MEAN CORPUSCULAR HGB CONC 34.6 g/dL (32.0-36.0); MEAN CORPUSCULAR VOLUME 84 fl (80-97); MONOCYTES % (AUTO) 8.1 % (3-13); PLATELET COUNT 145 10^3/uL (150-450); RED BLOOD COUNT 4.14 10^6/uL (4.35-5.55); RED CELL DISTRIBUTION WIDTH 13.9 % (11.5-14.0); SEGMENTED NEUTROPHILS % (AUTO) 69.5 % (42-78); TOTAL CELLS COUNTED % (AUTO) 100 %; WHITE BLOOD COUNT 4.1 10^3/uL (4.0-10.5)
--- NOTE | 2018-12-13 11:18 | PDOC PROGRESS REPORT ---
Subjective Progress Note for:: 12/13/18 Subjective:: 73 year old male with a PMH of CAD with prior stenting x 2 (2006, 2007), prior CABG, CHF (reports his EF years ago was 25%), S/P pacemaker placement, ?renal cell CA S/P left sided nephrectomy who comes from [facility] who presented with vomiting and diarrhea. He was found to have ileus on abdominal series. 12/10: His abdominal CT came back remarkable for a perforated diverticulitis. Surgery evaluated patient and recommended conservative management for now as he was deemed high surgical risk. This morning, he is sitting on a chair and says the abdomninal pain has slightly improved. No nausea or vomiting. He did have a loose stool this morning. 12/11: No acute event overnight. He has not required morphine overnight. He says he still has LLQ pain but this is slightly improved this morning. He is passing out gas. No nausea or vomiting. 12/12: He did say he had 3 episodes of loose stools overnight. Currently NPO. He says his abdominal pain has continue to slightly improved from yesterday. Repeat CT yesterday shows slight improvement of free air. He was evaluated by surgery this morning and diet was advanced to clear liquid. 12/13/2018-patient is on liquid diet took a little bit he complained that he felt like he wants to throw it back up you going to see if he is on any Zofran for nausea. He said he is having the loose stools and C. difficile is negative so far. Repeat CAT scan was done on 12/11/2018 shows slight improvement of the free air. Surgical evaluation was done this morning by Dr. Neves he wants to continue the liquid diet and advance the diet as tolerated. No acute events in the last 24 hours. Patient is afebrile. Reason For Visit: PERFORATED DIVERTICULITIS,ACUTE DIARRHEA Physical Exam Vital Signs: Temp Pulse Resp BP Pulse Ox 97.8 F 65 16 134/67 H 99 12/13/18 08:03 12/13/18 08:03 12/13/18 08:03 12/13/18 08:03 12/13/18 08:03 Intake & Output 12/12/18 12/13/18 12/14/18 06:59 06:59 06:59 Intake Total 2963 1898 200 Output Total 650 Balance 2313 1898 200 Weight 104.8 kg 104.3 kg General appearance: PRESENT: no acute distress Head exam: PRESENT: atraumatic Eye exam: PRESENT: PERRLA Mouth exam: PRESENT: moist, tongue midline Neck exam: ABSENT: carotid bruit, JVD, lymphadenopathy, thyromegaly Respiratory exam: PRESENT: decreased breath sounds Cardiovascular exam: PRESENT: other - Patient has AICD GI/Abdominal exam: PRESENT: normal bowel sounds, soft. ABSENT: distended, guarding, mass, organolmegaly, rebound, tenderness Extremities exam: PRESENT: full ROM. ABSENT: calf tenderness, clubbing, pedal edema Neurological exam: PRESENT: alert, awake, oriented to person, oriented to place, oriented to time, oriented to situation, CN II-XII grossly intact. ABSENT: motor sensory deficit Psychiatric exam: PRESENT: appropriate affect, normal mood. ABSENT: homicidal ideation, suicidal ideation Results Laboratory Results: 12/12/18 09:25 12/12/18 09:25 Impressions: Acute Abdomen Series 12/09/18 09:52 IMPRESSION: Probable ileus. No acute findings in the chest. Foot X-Ray 12/10/18 17:11 IMPRESSION: NO FRACTURE. Chest X-Ray 12/11/18 06:00 IMPRESSION: Cardiac enlargement without failure. No interval change. Abdomen/Pelvis CT 12/11/18 09:41 IMPRESSION: Diverticulitis with localized perforation and left lower quadrant. The amount of free air slightly less than previous stable inflammatory changes. There is still air in the scrotum via the inguinal canal, but less than previous. Assessment & Plan - Diagnosis (1) Perforated diverticulum Is this a current diagnosis for this admission?: Yes Plan: Surgery following. Recommended conservative management at this time. Continue IV antibitotics. Abdominal pain has slightly improved. 2/2: Repeated CT of the abdomen this morning which shows improvement in the amount of free air. 2/3: Diet advanced to clear liquid by surgery. Noted recommendation for antibiotic duration of 10 days. 12/13/2018-patient was admitted with abdominal pain and found to have perforated diverticulum. Surgery on board. As per the surgery patient is under conservative management. Able to take a little bit of liquid diet this morning. And C. difficile was negative. We are going to put him on Zofran 4 mg IV every 6 as needed for nausea vomiting's. Blood pressure stable I am going to discontinue IV fluids today. (2) Acute diarrhea Is this a current diagnosis for this admission?: Yes Plan: Secondary to acute diverticulitis. C difficile was negative. Abdominal series showed nonobstructive pattern with ileus. He was given a liter of fluid bolus in the ER. Keep IV fluids at 50 cc/hr for now as he reports his last known EF was 25% years ago. 12/13/2018 patient has acute diarrhea still having the occasional loose stools probably secondary to acute diverticulitis C. difficile was negative as per the surgical recommendations she is going to be on antibiotics for 10 days. And abdominal series shows nonobstructive pattern with ileus. And is able to tolerate the liquid diet this morning and we going to discontinue his IV fluids. His EF was 25% and he has AICD cardiology consult was done Dr. Dsouza is recommending to interrogate the device the patient has. (3) Ileus of unspecified type Is this a current diagnosis for this admission?: Yes Plan: Secondary to perforated diverticulitis. 12/13/2018-patient has an ileus probably secondary to perforated diverticulitis no complaints of abdominal pain today. We will continue the present management and good order for the acute abdominal series today. (4) Acute kidney injury Is this a current diagnosis for this admission?: Yes Plan: 12/13/2018-patient was admitted with acute kidney injury which was resolved with IV fluids creatinine today 0.97. - Time Time Spent with patient: 15-24 minutes Medications reviewed and adjusted accordingly: Yes Anticipated discharge: Home
[2018-12-13] MEDS: KETOROLAC TROMETHAMINE INJ/PF 30 MG/1 ML SDV IV PRN (11:20)
[2018-12-13 11:40] LABS: ANION GAP 7 (5-19); BLOOD UREA NITROGEN 10 mg/dL (7-20); CALCIUM 9.2 mg/dL (8.4-10.2); CARBON DIOXIDE 21 mmol/L (22-30); CHLORIDE 112 mmol/L (98-107); GLUCOSE 92 mg/dL (75-110); POTASSIUM 3.4 mmol/L (3.6-5.0); SODIUM 140.4 mmol/L (137-145)
[2018-12-13] MEDS: ONDANSETRON HCL INJ/PF 4 MG/2 ML SDV IV PRN (12:14)
--- NOTE | 2018-12-13 15:33 | RADIOLOGY REPORT (SQ) ---
EXAM DESCRIPTION: ACUTE ABDOMEN SERIES COMPLETED DATE/TIME: 12/13/2018 2:25 pm REASON FOR STUDY: ileus COMPARISON: 12/09/2018 NUMBER OF VIEWS: Three views. TECHNIQUE: Frontal chest, supine abdomen and upright/decubitus abdomen radiographic images acquired. LIMITATIONS: None. FINDINGS: CHEST: Bibasilar linear opacities likely atelectasis. Evidence of prior CABG. Atheroscle rotic aorta. Left-sided cardiac pacer with leads overlying right atrium and right ventricle. FREE AIR: None. No abnormal gas collections. BOWEL GAS PATTERN: Nonspecific bowel pattern without definite evidence of intestinal obstruction. Sc attered gas fluid levels most conspicuous within the transverse and descending colon. CALCIFICATIONS: No suspicious calcifications. HARDWARE: Chest hardware as above. Surgical clips overlie upper midline abdomen. SOFT TISSUES: No gross mass or suggestion of organomegaly. BONES: No acute fracture. No worrisome bone lesions. OTHER: No other significant finding. IMPRESSION: Nonspecific bowel gas pattern without evidence of intestinal obstruction. Scattered gas fluid levels throughout the transverse and descending colon which can be seen with diar rheal illness or cathartic use. Minimal bibasilar opacities, likely atelectasis. TECHNICAL DOCUMENTATION: JOB ID: [id number] [employer]- All Rights Reserved Reading location - IP/workstation name: [email or web address]
--- NOTE | 2018-12-13 17:45 | PDOC PROGRESS REPORT ---
Subjective Progress Note for:: 12/13/18 Subjective:: less pains,tolerating diet Reason For Visit: PERFORATED DIVERTICULITIS,ACUTE DIARRHEA Physical Exam Vital Signs: Temp Pulse Resp BP Pulse Ox 97.2 F 55 L 16 125/62 96 12/13/18 15:39 12/13/18 15:39 12/13/18 15:39 12/13/18 15:39 12/13/18 15:39 Intake & Output 12/12/18 12/13/18 12/14/18 06:59 06:59 06:59 Intake Total 2963 1898 400 Output Total 650 Balance 2313 1898 400 Weight 104.8 kg 104.3 kg Exam: abdomen is soft, mild tenderness lateral LLQ towards iliac area Results Laboratory Results: 12/13/18 10:58 12/13/18 10:58 12/13/18 12/13/18 10:58 10:58 WBC 4.1 RBC 4.14 L Hgb 12.0 L Hct 34.7 L MCV 84 MCH 29.1 MCHC 34.6 RDW 13.9 Plt Count 145 L Seg Neutrophils % 69.5 Lymphocytes % 19.6 Monocytes % 8.1 Eosinophils % 2.4 Basophils % 0.4 Absolute Neutrophils 2.8 Absolute Lymphocytes 0.8 Absolute Monocytes 0.3 Absolute Eosinophils 0.1 Absolute Basophils 0.0 Sodium 140.4 Potassium 3.4 L Chloride 112 H Carbon Dioxide 21 L Anion Gap 7 BUN 10 Creatinine 0.88 Est GFR ( Amer) > 60 Est GFR (Non-Af Amer) > 60 Glucose 92 Calcium 9.2 Impressions: Foot X-Ray 12/10/18 17:11 IMPRESSION: NO FRACTURE. Chest X-Ray 12/11/18 06:00 IMPRESSION: Cardiac enlargement without failure. No interval change. Abdomen/Pelvis CT 12/11/18 09:41 IMPRESSION: Diverticulitis with localized perforation and left lower quadrant. The amount of free air slightly less than previous stable inflammatory changes. There is still air in the scrotum via the inguinal canal, but less than previous. Acute Abdomen Series 12/13/18 00:00 IMPRESSION: Nonspecific bowel gas pattern without evidence of intestinal obstruction. Scattered gas fluid levels throughout the transverse and descending colon which can be seen with diarrheal illness or cathartic use. Minimal bibasilar opacities, likely atelectasis. Assessment & Plan - Time Time Spent with patient: 15-24 minutes - Inpatient Certification Medical Necessity: Need for IV Antibiotics - Plan Summary Plan Summary: Continue IV antibiotics for day 4 full liquids
[2018-12-13] MEDS: RANOLAZINE 500 MG TAB.SR.12H PO SCH (21:51)
[2018-12-13] MEDS ORDERED: (PENDING PHARMACY ID) (Ranolazine [Ranexa] 1,000 MG) PO SCH (22:00)
--- NOTE | 2018-12-13 23:11 | Progress Note ---
Provider Note Provider Note: CARDIOLOGY PROGRESS NOTE by Dr. Ema So on 12/13/2018. SUBJECTIVE: The patient denies any chest pain or discomfort. There is no PND orthopnea. The patient's abdominal pain is much improved and almost resolved. He is on thin liquids, and tolerating it well, without any nausea or vomiting. He did have one episode of diarrhea. There is no abdominal pain. There is no anginal symptoms. There is no shortness of breath. There is no leg edema. There is no firing of his AICD. There is no ventricular arrhythmia seen on the monitor. PHYSICAL EXAMINATION: The patient is mildly obese. He is well-groomed. In no acute distress. I Selected Entries 12/13/18 19:46 Temperature 97.4 F Temperature Oral Source Pulse Rate 60 Respiratory 16 Rate Blood Pressure 122/61 BP Location Left Arm BP Position Supine O2 Sat by Pulse 99 Oximetry Oxygen Delivery Room Air Method HEAD: Head is atraumatic and normocephalic. EYES: Pupils are equal round regular reactive to light accommodation. Extraocular movements are normal, there is no conjunctival pallor, and no scleral icterus. EARS: Tympanic membranes are intact external auditory canals are clear. NOSE: There is no inflammation of the nasal mucous membrane there is no deviated nasal septum. MOUTH: Mucous membranes of mouth and tongue are moist, there is no ulcers in the mouth or tongue, and no bleeding from the gums. THROAT: There is no redness of the oropharynx, no exudate seen. SKIN: There is no petechia or ecchymosis. There is no rashes or lesions.NECK: Supple. There is no JVD. Carotids are equal there is no bruit. There is no lymphadenopathy. There is no goiter. Trachea central. LUNGS: There is diminished air entry and prolonged expiration. Clear to auscultation bilaterally, no wheezes, rales or rhonchi. On percussion there is hyperresonance although there is no chest wall tenderness HEART: S1 and S2 are heard. S1 is of normal intensity, there is no S3 or S4 gallops. There is a systolic murmur the left sternal border and the apex. There is no rub. ABDOMEN: Slightly distended, bowel sounds are slightly decreased. There is some minimal discomfort on palpation of the lower abdominal area. No masses, and there is no rigidity, and no rebound, and no guarding. There is no hepatosplenomegaly. EXTREMITIES: Femorals are slightly diminished. There is no femoral bruits. Leg pulses are diminished. There is no pedal edema. There is no DVT or cellulitis. There is no cyanosis or clubbing. There is no calf tenderness.NEUROLOGICAL the patient is awake alert oriented 3 with no focal deficits. PSYCHIATRIC: The patient judgment and insight are intact his affect is normal. 12/13/18 12/13/18 10:58 10:58 WBC 4.1 RBC 4.14 L Hgb 12.0 L Hct 34.7 L MCV 84 MCH 29.1 MCHC 34.6 RDW 13.9 Plt Count 145 L Seg Neutrophils % 69.5 Lymphocytes % 19.6 Monocytes % 8.1 Sodium 140.4 Potassium 3.4 L Chloride 112 H Carbon Dioxide 21 L Anion Gap 7 BUN 10 Creatinine 0.88 Est GFR (Non-Af Amer) > 60 Glucose 92 Calcium 9.2 IMPRESSION/RECOMMENDATION: 1. Acute abdomen with perforated diverticulitis. Patient being treated conservatively. The patient has improved remarkably. As per the surgical is not the patient is not going to be having surgery at this time. The patient is taking his medication by mouth, without problems. 2. Coronary artery disease, history of OH, history of coronary bypass graft surgery. At present with no anginal symptoms. She is tolerating the beta- marilia. He is also tolerating the lisinopril and the beta-marilia and the lisinopril to 25 mg p.o. every 12 hours, And continue the patient on Imdur. 3. Ischemic cardia myopathy with moderately reduced LV ejection fraction. Compensated with no evidence of acute heart failure. Close observation to watch for any decompensation. 4. Biventricular AICD. 5. Hypertension: Blood pressure well controlled. 6. History of asthma and COPD: At present at baseline, without acute asthmatic attack or acute exacerbation of COPD. Continue to observe the patient for any untoward development of symptoms 7. Sleep apnea: Would recommend empiric BiPAP at night. 8. History of depression: At present the patient appears to be stable, off his antidepressants. 9. GERD: At present asymptomatic. 10. Hyperlipidemia: Note the patient states that since the implantation of the biventricular AICD, this has not been interrogated. Interrogation was done the patient has a [employer] biventricular AICD. So far in the past he has had 3 shocks. One was successfully terminated by a pacing. 2 of them required shocks and was successfully terminated. Patient has no real recollection of the shocks. The AICD is working fine. MEDICATIONS reviewed. Discussed with attending physician and other caregiving providers on the case the management plan. Cardiac status is stable. Medical decision making is now of moderate complexity. 40 minutes spent on this patient more than 50% time spent in direct patient care. Will sign off the case. We will follow the patient as an outpatient as the patient desires to follow-up with me as an outpatient. Thanking you for allowing me to participate in the care of this patient.
[2018-12-14] MEDS: METRONIDAZOLE 500 MG/NS RTU 500 MG/100 ML RTUPB IV SCH ×4 (00:57→19:06)
[2018-12-14] MEDS: PIPERACILLIN SODIUM/TAZOBACTAM 3.375 GM in NORMAL SALINE 100 ML IV SCH ×4 (03:23→22:18)
[2018-12-14 06:19] LABS: ABSOLUTE EOSINOPHILS # (AUTO) 0.1 10^3/uL (0.0-0.6); ABSOLUTE MONOCYTES (AUTO) 0.4 10^3/uL (0.1-1.4); ABSOLUTE NEUT (AUTO) 2.4 10^3/uL (1.7-8.2); BASOPHILS % (AUTO) 0.4 % (0-2); EOSINOPHILS % (AUTO) 3.2 % (0-6); HEMATOCRIT 35.7 % (37.9-51.0); HEMOGLOBIN 12.3 g/dL (13.5-17.0); LYMPHOCYTES % (AUTO) 25.1 % (13-45); MEAN CORPUSCULAR HEMOGLOBIN 29.1 pg (27.0-33.4); MEAN CORPUSCULAR HGB CONC 34.4 g/dL (32.0-36.0); MEAN CORPUSCULAR VOLUME 85 fl (80-97); MONOCYTES % (AUTO) 9.6 % (3-13); PLATELET COUNT 133 10^3/uL (150-450); RED BLOOD COUNT 4.23 10^6/uL (4.35-5.55); RED CELL DISTRIBUTION WIDTH 14.3 % (11.5-14.0); SEGMENTED NEUTROPHILS % (AUTO) 61.7 % (42-78); TOTAL CELLS COUNTED % (AUTO) 100 %; WHITE BLOOD COUNT 3.9 10^3/uL (4.0-10.5)
[2018-12-14 07:01] LABS: BLOOD UREA NITROGEN 10 mg/dL (7-20); CALCIUM 9.3 mg/dL (8.4-10.2); GLUCOSE 79 mg/dL (75-110)
[2018-12-14 07:02] LABS: ALANINE AMINOTRANSFERASE 25 U/L (21-72); ALBUMIN 2.8 g/dL (3.5-5.0); ALKALINE PHOSPHATASE 48 U/L (38-126); ANION GAP 7 (5-19); ASPARTATE AMINO TRANSFERASE 37 U/L (17-59); BILIRUBIN,DIRECT 0.3 mg/dL (0.0-0.4); BILIRUBIN,TOTAL 0.7 mg/dL (0.2-1.3); CARBON DIOXIDE 24 mmol/L (22-30); CHLORIDE 110 mmol/L (98-107); POTASSIUM 3.7 mmol/L (3.6-5.0); SODIUM 140.9 mmol/L (137-145); TOTAL PROTEIN 5.1 g/dL (6.3-8.2)
[2018-12-14] MEDS: KETOROLAC TROMETHAMINE INJ/PF 30 MG/1 ML SDV IV PRN ×2 (09:28→15:32)
[2018-12-14] MEDS: ASPIRIN 81 MG TABLET, CHEWABLE PO SCH (09:30)
[2018-12-14] MEDS: ATORVASTATIN CALCIUM 80 MG TABLET PO SCH (09:30)
[2018-12-14] MEDS: ISOSORBIDE MONONITRATE 30 MG TAB.ER.24H PO SCH (09:30)
[2018-12-14] MEDS: DOCUSATE SODIUM 100 MG CAPSULE PO SCH (09:30)
[2018-12-14] MEDS: LISINOPRIL 5 MG TABLET PO SCH ×2 (09:30→22:22)
[2018-12-14] MEDS: CITALOPRAM HYDROBROMIDE 20 MG TABLET PO SCH (09:30)
[2018-12-14] MEDS: CLOPIDOGREL BISULFATE 75 MG TABLET PO SCH ×2 (09:30→09:38)
[2018-12-14] MEDS: METOPROLOL SUCCINATE 25 MG TAB.SR.24H PO SCH ×2 (09:31→22:22)
[2018-12-14] MEDS: RANOLAZINE 500 MG TAB.SR.12H PO SCH ×2 (09:32→22:21)
[2018-12-14] MEDS ORDERED: METOPROLOL SUCCINATE 25 MG TAB.SR.24H PO SCH (10:00)
[2018-12-14] MEDS ORDERED: LISINOPRIL 5 MG TABLET PO SCH (10:00)
[2018-12-14] MEDS ORDERED: ISOSORBIDE MONONITRATE 60 MG TAB.ER.24H PO SCH (10:00)
[2018-12-14] MEDS ORDERED: (PENDING PHARMACY ID) (Lisinopril [Prinivil 2.5 Mg Tablet] 2.5 MG) PO SCH (10:00)
--- NOTE | 2018-12-14 11:17 | PDOC PROGRESS REPORT ---
Subjective Progress Note for:: 12/14/18 Subjective:: 73 year old male with a PMH of CAD with prior stenting x 2 (2006, 2007), prior CABG, CHF (reports his EF years ago was 25%), S/P pacemaker placement, ?renal cell CA S/P left sided nephrectomy who comes from [facility] who presented with vomiting and diarrhea. He was found to have ileus on abdominal series. 12/10: His abdominal CT came back remarkable for a perforated diverticulitis. Surgery evaluated patient and recommended conservative management for now as he was deemed high surgical risk. This morning, he is sitting on a chair and says the abdomninal pain has slightly improved. No nausea or vomiting. He did have a loose stool this morning. 12/11: No acute event overnight. He has not required morphine overnight. He says he still has LLQ pain but this is slightly improved this morning. He is passing out gas. No nausea or vomiting. 12/12: He did say he had 3 episodes of loose stools overnight. Currently NPO. He says his abdominal pain has continue to slightly improved from yesterday. Repeat CT yesterday shows slight improvement of free air. He was evaluated by surgery this morning and diet was advanced to clear liquid. 12/13/2018-patient is on liquid diet took a little bit he complained that he felt like he wants to throw it back up you going to see if he is on any Zofran for nausea. He said he is having the loose stools and C. difficile is negative so far. Repeat CAT scan was done on 12/11/2018 shows slight improvement of the free air. Surgical evaluation was done this morning by Dr. Neves he wants to continue the liquid diet and advance the diet as tolerated. No acute events in the last 24 hours. Patient is afebrile. 12/14/2018-this 73-year-old male admitted with perforated diverticulum. He is on conservative management. Is able to tolerate the breakfast this morning. Diet was advanced to full liquid diet by Dr. Neves. pt is afebrile. no Complaints from the patient. Reason For Visit: PERFORATED DIVERTICULITIS,ACUTE DIARRHEA Physical Exam Vital Signs: Temp Pulse Resp BP Pulse Ox 97.5 F 58 L 16 121/60 97 12/14/18 07:37 12/14/18 07:37 12/14/18 07:37 12/14/18 07:37 12/14/18 07:37 Intake & Output 12/13/18 12/14/18 12/15/18 06:59 06:59 06:59 Intake Total 1898 1674 Balance 1898 1674 Weight 104.3 kg 104.3 kg General appearance: PRESENT: no acute distress Head exam: PRESENT: atraumatic Eye exam: PRESENT: PERRLA Mouth exam: PRESENT: moist Neck exam: ABSENT: carotid bruit, JVD, lymphadenopathy, thyromegaly Respiratory exam: PRESENT: clear to auscultation debbie. ABSENT: rales, rhonchi, wheezes Cardiovascular exam: PRESENT: RRR, other - aicd present Pulses: PRESENT: normal dorsalis pedis pul GI/Abdominal exam: PRESENT: normal bowel sounds, soft. ABSENT: distended, guarding, mass, organolmegaly, rebound, tenderness Extremities exam: PRESENT: full ROM. ABSENT: calf tenderness, clubbing, pedal edema Neurological exam: PRESENT: alert, awake, oriented to person, oriented to place, oriented to time, oriented to situation, CN II-XII grossly intact. ABSENT: motor sensory deficit Psychiatric exam: PRESENT: appropriate affect, normal mood. ABSENT: homicidal ideation, suicidal ideation Results Laboratory Results: 12/14/18 05:45 12/14/18 05:45 12/13/18 12/13/18 12/14/18 10:58 10:58 05:45 WBC 4.1 3.9 L RBC 4.14 L 4.23 L Hgb 12.0 L 12.3 L Hct 34.7 L 35.7 L MCV 84 85 MCH 29.1 29.1 MCHC 34.6 34.4 RDW 13.9 14.3 H Plt Count 145 L 133 L Seg Neutrophils % 69.5 61.7 Lymphocytes % 19.6 25.1 Monocytes % 8.1 9.6 Eosinophils % 2.4 3.2 Basophils % 0.4 0.4 Absolute Neutrophils 2.8 2.4 Absolute Lymphocytes 0.8 1.0 Absolute Monocytes 0.3 0.4 Absolute Eosinophils 0.1 0.1 Absolute Basophils 0.0 0.0 Sodium 140.4 Potassium 3.4 L Chloride 112 H Carbon Dioxide 21 L Anion Gap 7 BUN 10 Creatinine 0.88 Est GFR ( Amer) > 60 Est GFR (Non-Af Amer) > 60 Glucose 92 Calcium 9.2 Magnesium Total Bilirubin AST ALT Alkaline Phosphatase Total Protein Albumin 12/14/18 05:45 WBC RBC Hgb Hct MCV MCH MCHC RDW Plt Count Seg Neutrophils % Lymphocytes % Monocytes % Eosinophils % Basophils % Absolute Neutrophils Absolute Lymphocytes Absolute Monocytes Absolute Eosinophils Absolute Basophils Sodium 140.9 Potassium 3.7 Chloride 110 H Carbon Dioxide 24 Anion Gap 7 BUN 10 Creatinine 1.00 Est GFR ( Amer) > 60 Est GFR (Non-Af Amer) > 60 Glucose 79 Calcium 9.3 Magnesium 2.1 Total Bilirubin 0.7 AST 37 ALT 25 Alkaline Phosphatase 48 Total Protein 5.1 L Albumin 2.8 L Impressions: Foot X-Ray 12/10/18 17:11 IMPRESSION: NO FRACTURE. Chest X-Ray 12/11/18 06:00 IMPRESSION: Cardiac enlargement without failure. No interval change. Abdomen/Pelvis CT 12/11/18 09:41 IMPRESSION: Diverticulitis with localized perforation and left lower quadrant. The amount of free air slightly less than previous stable inflammatory changes. There is still air in the scrotum via the inguinal canal, but less than previous. Acute Abdomen Series 12/13/18 00:00 IMPRESSION: Nonspecific bowel gas pattern without evidence of intestinal obstruction. Scattered gas fluid levels throughout the transverse and descending colon which can be seen with diarrheal illness or cathartic use. Minimal bibasilar opacities, likely atelectasis. Assessment & Plan - Diagnosis (1) Perforated diverticulum Is this a current diagnosis for this admission?: Yes Plan: Surgery following. Recommended conservative management at this time. Continue IV antibitotics. Abdominal pain has slightly improved. 2/2: Repeated CT of the abdomen this morning which shows improvement in the amount of free air. 2/3: Diet advanced to clear liquid by surgery. Noted recommendation for antibiotic duration of 10 days. 12/13/2018-patient was admitted with abdominal pain and found to have perforated diverticulum. Surgery on board. As per the surgery patient is under conservative management. Able to take a little bit of liquid diet this morning. And C. difficile was negative. We are going to put him on Zofran 4 mg IV every 6 as needed for nausea vomiting's. Blood pressure stable I am going to discontinue IV fluids today. 12/14/2018-patient was admitted with abdominal pain found to have a perforated diverticulum. Conservative management as per the surgery. He is able to tolerate the clear liquid diet well is going to be advanced to full liquid diet as per surgery. The acute abdominal series was done yesterday does not show any obstruction or ileus. no air in the peritoineum. Plan is to continue the present management and continue the antibiotics. (2) Acute diarrhea Is this a current diagnosis for this admission?: Yes Plan: Secondary to acute diverticulitis. C difficile was negative. Abdominal series showed nonobstructive pattern with ileus. He was given a liter of fluid bolus in the ER. Keep IV fluids at 50 cc/hr for now as he reports his last known EF was 25% years ago. 12/13/2018 patient has acute diarrhea still having the occasional loose stools probably secondary to acute diverticulitis C. difficile was negative as per the surgical recommendations she is going to be on antibiotics for 10 days. Acute abdominal series shows nonobstructive pattern with ileus. And is able to tolerate the liquid diet this morning and we going to discontinue his IV fluids. His EF was 25% and he has AICD cardiology consult was done Dr. Dsouza is recommending to interrogate the device the patient has. 12/14/2018-patient not complaining of any loose stools. C. difficile was negative. Acute abdominal series done shows nonspecific gas pattern without any signs of obstruction. Plan is to advance diet as tolerated. (3) Ileus of unspecified type Is this a current diagnosis for this admission?: Yes Plan: Secondary to perforated diverticulitis. 12/13/2018-patient has an ileus probably secondary to perforated diverticulitis no complaints of abdominal pain today. We will continue the present management and good order for the acute abdominal series today. 12/14/2018-patient has good bowel movement able to tolerate the feeds. He acute abdominal series rule out any ileus. (4) Acute kidney injury Is this a current diagnosis for this admission?: Yes Plan: 12/13/2018-patient was admitted with acute kidney injury which was resolved with IV fluids creatinine today 0.97. 12/14/2018-patient's latest creatinine is 1.0, on admission it is 1.55. Acute kidney injury probably prerenal. Which was resolved now. (5) AICD (automatic cardioverter/defibrillator) present Is this a current diagnosis for this admission?: Yes Plan: 12/14/2018 patient has AICD. As per the interrogation patient has a [employer] biventricular AICD. Audiology evaluation done. No problems during the hospital stay. (6) Ischemic cardiomyopathy Is this a current diagnosis for this admission?: Yes Plan: 12/14/2018-patient has ischemic cardiomyopathy with moderately reduced left ventricular ejection fraction. No signs of fluid overload. Patient has chronic systolic heart failure. - Time Time Spent with patient: 15-24 minutes Medications reviewed and adjusted accordingly: Yes Anticipated discharge: Other - [facility]
[2018-12-14] MEDS: ONDANSETRON HCL INJ/PF 4 MG/2 ML SDV IV PRN (16:15)
[2018-12-15] MEDS: METRONIDAZOLE 500 MG/NS RTU 500 MG/100 ML RTUPB IV SCH ×5 (02:04→23:50)
[2018-12-15] MEDS: PIPERACILLIN SODIUM/TAZOBACTAM 3.375 GM in NORMAL SALINE 100 ML IV SCH ×4 (02:08→22:16)
--- NOTE | 2018-12-15 08:31 | PDOC PROGRESS REPORT ---
Subjective Progress Note for:: 12/15/18 Reason For Visit: PERFORATED DIVERTICULITIS,ACUTE DIARRHEA Physical Exam Vital Signs: Temp Pulse Resp BP Pulse Ox 97.9 F 57 L 16 130/70 H 96 12/14/18 23:22 12/14/18 23:22 12/14/18 23:22 12/14/18 23:22 12/14/18 23:22 Intake & Output 12/14/18 12/15/18 12/16/18 06:59 06:59 06:59 Intake Total 1674 1800 Balance 1674 1800 Weight 104.3 kg 104.3 kg General appearance: PRESENT: no acute distress Eye exam: PRESENT: EOMI Mouth exam: PRESENT: moist Neck exam: PRESENT: full ROM Respiratory exam: PRESENT: clear to auscultation debbie Cardiovascular exam: PRESENT: RRR GI/Abdominal exam: PRESENT: other - ABD SOFT MIN TENDERNESS SUPRAPUBIC, LLQ MARKEDLY LESS TENDER THAN ADMISSION SUBJECTIVELY IMPROVED SINCE YESTERDAY. Neurological exam: PRESENT: awake, oriented to person, oriented to place, oriented to time, oriented to situation Skin exam: PRESENT: dry Results Laboratory Results: 12/14/18 05:45 12/14/18 05:45 Impressions: Foot X-Ray 12/10/18 17:11 IMPRESSION: NO FRACTURE. Chest X-Ray 12/11/18 06:00 IMPRESSION: Cardiac enlargement without failure. No interval change. Abdomen/Pelvis CT 12/11/18 09:41 IMPRESSION: Diverticulitis with localized perforation and left lower quadrant. The amount of free air slightly less than previous stable inflammatory changes. There is still air in the scrotum via the inguinal canal, but less than previous. Acute Abdomen Series 12/13/18 00:00 IMPRESSION: Nonspecific bowel gas pattern without evidence of intestinal obstruction. Scattered gas fluid levels throughout the transverse and descending colon which can be seen with diarrheal illness or cathartic use. Minimal bibasilar opacities, likely atelectasis. Assessment & Plan - Diagnosis (1) Diverticulitis Is this a current diagnosis for this admission?: Yes - Inpatient Certification Medical Necessity: Need for IV Antibiotics - Plan Summary Plan Summary: PT WAS STARTED ON FULL LIQUIDS YESTERDAY HAVING BM'S PASSING FLATUS BECAME NAUSEATED APPLE JUICE WANTS TO TRY MORE SOLIDS WILL ADVANCE TO SOFT DIET CONT TO TREND WBC. PAIN HAS BECOME MIN IF HE SASCHA SOFT FOODS TODAY COULD BE DISCHARGE TOMORROW ON PO ABX FOR 7-10 DAYS WITH SURGERY CLILNIC F/U.
[2018-12-15] MEDS: ATORVASTATIN CALCIUM 80 MG TABLET PO SCH (10:06)
[2018-12-15] MEDS: ASPIRIN 81 MG TABLET, CHEWABLE PO SCH (10:06)
[2018-12-15] MEDS: DOCUSATE SODIUM 100 MG CAPSULE PO SCH (10:07)
[2018-12-15] MEDS: RANOLAZINE 500 MG TAB.SR.12H PO SCH ×2 (10:07→22:15)
[2018-12-15] MEDS: ISOSORBIDE MONONITRATE 30 MG TAB.ER.24H PO SCH (10:07)
[2018-12-15] MEDS: METOPROLOL SUCCINATE 25 MG TAB.SR.24H PO SCH ×2 (10:07→22:16)
[2018-12-15] MEDS: LISINOPRIL 5 MG TABLET PO SCH ×2 (10:07→22:15)
[2018-12-15] MEDS: CITALOPRAM HYDROBROMIDE 20 MG TABLET PO SCH (10:07)
[2018-12-15 11:10] LABS: ABSOLUTE EOSINOPHILS # (AUTO) 0.1 10^3/uL (0.0-0.6); ABSOLUTE MONOCYTES (AUTO) 0.4 10^3/uL (0.1-1.4); ABSOLUTE NEUT (AUTO) 2.7 10^3/uL (1.7-8.2); BASOPHILS % (AUTO) 0.6 % (0-2); EOSINOPHILS % (AUTO) 3.3 % (0-6); HEMATOCRIT 36.8 % (37.9-51.0); HEMOGLOBIN 12.5 g/dL (13.5-17.0); MEAN CORPUSCULAR HEMOGLOBIN 28.8 pg (27.0-33.4); MEAN CORPUSCULAR HGB CONC 34.1 g/dL (32.0-36.0); MEAN CORPUSCULAR VOLUME 85 fl (80-97); MONOCYTES % (AUTO) 8.3 % (3-13); PLATELET COUNT 151 10^3/uL (150-450); RED BLOOD COUNT 4.35 10^6/uL (4.35-5.55); RED CELL DISTRIBUTION WIDTH 14.1 % (11.5-14.0); SEGMENTED NEUTROPHILS % (AUTO) 64.8 % (42-78); TOTAL CELLS COUNTED % (AUTO) 100 %; WHITE BLOOD COUNT 4.2 10^3/uL (4.0-10.5)
--- NOTE | 2018-12-15 13:15 | PDOC PROGRESS REPORT ---
Subjective Progress Note for:: 12/15/18 Subjective:: 73 year old male with a PMH of CAD with prior stenting x 2 (2006, 2007), prior CABG, CHF (reports his EF years ago was 25%), S/P pacemaker placement, ?renal cell CA S/P left sided nephrectomy who comes from shelter who presented with vomiting and diarrhea. He was found to have ileus on abdominal series. 12/10: His abdominal CT came back remarkable for a perforated diverticulitis. Surgery evaluated patient and recommended conservative management for now as he was deemed high surgical risk. This morning, he is sitting on a chair and says the abdomninal pain has slightly improved. No nausea or vomiting. He did have a loose stool this morning. 12/11: No acute event overnight. He has not required morphine overnight. He says he still has LLQ pain but this is slightly improved this morning. He is passing out gas. No nausea or vomiting. 12/12: He did say he had 3 episodes of loose stools overnight. Currently NPO. He says his abdominal pain has continue to slightly improved from yesterday. Repeat CT yesterday shows slight improvement of free air. He was evaluated by surgery this morning and diet was advanced to clear liquid. 12/13/2018-patient is on liquid diet took a little bit he complained that he felt like he wants to throw it back up you going to see if he is on any Zofran for nausea. He said he is having the loose stools and C. difficile is negative so far. Repeat CAT scan was done on 12/11/2018 shows slight improvement of the free air. Surgical evaluation was done this morning by Dr. Neves he wants to continue the liquid diet and advance the diet as tolerated. No acute events in the last 24 hours. Patient is afebrile. 12/14/2018-this 73-year-old male admitted with perforated diverticulum. He is on conservative management. Is able to tolerate the breakfast this morning. Diet was advanced to full liquid diet by Dr. Neves. pt is afebrile. no Complaints from the patient. 12/15/2018 73-year-old male admitted with perforated diverticulum. Surgeon saw the patient this morning diet was advanced to solids. Patient denies any abdominal pains he had a good bowel movement this morning. Plan is to continue the present management probably discharge him back to the shelter tomorrow with p.o. antibiotics. Reason For Visit: PERFORATED DIVERTICULITIS,ACUTE DIARRHEA Physical Exam Vital Signs: Temp Pulse Resp BP Pulse Ox 97.9 F 69 18 111/51 L 97 12/15/18 11:58 12/15/18 12:05 12/15/18 12:05 12/15/18 11:58 12/15/18 12:05 Intake & Output 12/14/18 12/15/18 12/16/18 06:59 06:59 06:59 Intake Total 1674 1800 120 Balance 1674 1800 120 Weight 104.3 kg 104.3 kg General appearance: PRESENT: no acute distress Head exam: PRESENT: atraumatic Eye exam: PRESENT: PERRLA Neck exam: ABSENT: carotid bruit, JVD, lymphadenopathy, thyromegaly Respiratory exam: PRESENT: clear to auscultation debbie, other - aicd present. ABSENT: rales, rhonchi, wheezes Cardiovascular exam: PRESENT: RRR. ABSENT: diastolic murmur, rubs, systolic murmur GI/Abdominal exam: PRESENT: normal bowel sounds, soft. ABSENT: distended, guarding, mass, organolmegaly, rebound, tenderness Extremities exam: PRESENT: full ROM. ABSENT: calf tenderness, clubbing, pedal edema Neurological exam: PRESENT: alert, awake, oriented to person, oriented to place, oriented to time, oriented to situation, CN II-XII grossly intact. ABSENT: motor sensory deficit Psychiatric exam: PRESENT: appropriate affect, normal mood. ABSENT: homicidal ideation, suicidal ideation Results Laboratory Results: 12/15/18 09:45 12/14/18 05:45 12/15/18 09:45 WBC 4.2 RBC 4.35 Hgb 12.5 L Hct 36.8 L MCV 85 MCH 28.8 MCHC 34.1 RDW 14.1 H Plt Count 151 Seg Neutrophils % 64.8 Lymphocytes % 23.0 Monocytes % 8.3 Eosinophils % 3.3 Basophils % 0.6 Absolute Neutrophils 2.7 Absolute Lymphocytes 1.0 Absolute Monocytes 0.4 Absolute Eosinophils 0.1 Absolute Basophils 0.0 Impressions: Foot X-Ray 12/10/18 17:11 IMPRESSION: NO FRACTURE. Chest X-Ray 12/11/18 06:00 IMPRESSION: Cardiac enlargement without failure. No interval change. Abdomen/Pelvis CT 12/11/18 09:41 IMPRESSION: Diverticulitis with localized perforation and left lower quadrant. The amount of free air slightly less than previous stable inflammatory changes. There is still air in the scrotum via the inguinal canal, but less than previous. Acute Abdomen Series 12/13/18 00:00 IMPRESSION: Nonspecific bowel gas pattern without evidence of intestinal obstruction. Scattered gas fluid levels throughout the transverse and descending colon which can be seen with diarrheal illness or cathartic use. Minimal bibasilar opacities, likely atelectasis. Assessment & Plan - Diagnosis (1) Perforated diverticulum Is this a current diagnosis for this admission?: Yes Plan: Surgery following. Recommended conservative management at this time. Continue IV antibitotics. Abdominal pain has slightly improved. 22: Repeated CT of the abdomen this morning which shows improvement in the amount of free air. 23: Diet advanced to clear liquid by surgery. Noted recommendation for antibiotic duration of 10 days. 12/13/2018-patient was admitted with abdominal pain and found to have perforated diverticulum. Surgery on board. As per the surgery patient is under conservative management. Able to take a little bit of liquid diet this morning. And C. difficile was negative. We are going to put him on Zofran 4 mg IV every 6 as needed for nausea vomiting's. Blood pressure stable I am going to discontinue IV fluids today. 12/14/2018-patient was admitted with abdominal pain found to have a perforated diverticulum. Conservative management as per the surgery. He is able to tolerate the clear liquid diet well is going to be advanced to full liquid diet as per surgery. The acute abdominal series was done yesterday does not show any obstruction or ileus. no air in the peritoineum. Plan is to continue the present management and continue the antibiotics. 12/15/2018-patient was admitted with perforated diverticulum. His diarrhea was resolved. Able to tolerate the feeds. Plan is to probably discharge him tomorrow with p.o. antibiotic therapy for 7-10 days. (2) Acute diarrhea Is this a current diagnosis for this admission?: Yes Plan: Secondary to acute diverticulitis. C difficile was negative. Abdominal series showed nonobstructive pattern with ileus. He was given a liter of fluid bolus in the ER. Keep IV fluids at 50 cc/hr for now as he reports his last known EF was 25% years ago. 12/13/2018 patient has acute diarrhea still having the occasional loose stools probably secondary to acute diverticulitis C. difficile was negative as per the surgical recommendations she is going to be on antibiotics for 10 days. Acute a bdominal series shows nonobstructive pattern with ileus. And is able to tolerate the liquid diet this morning and we going to discontinue his IV fluids. His EF was 25% and he has AICD cardiology consult was done Dr. Dsouza is recommending to interrogate the device the patient has. 12/14/2018-patient not complaining of any loose stools. C. difficile was negative. Acute abdominal series done shows nonspecific gas pattern without any signs of obstruction. Plan is to advance diet as tolerated. 12/15/2018-patient was admitted with acute diarrhea. No complaints of loose stools for the last 48 hours. C. difficile was negative. Latest acute abdominal series shows nonspecific gas pattern without any obvious signs of obstruction. Plan is probably discharge tomorrow. (3) Ileus of unspecified type Is this a current diagnosis for this admission?: Yes Plan: Secondary to perforated diverticulitis. 12/13/2018-patient has an ileus probably secondary to perforated diverticulitis no complaints of abdominal pain today. We will continue the present management and good order for the acute abdominal series today. 12/14/2018-patient has good bowel movement able to tolerate the feeds. He acute abdominal series rule out any ileus. 12/25/2018-ilius was resolved. Patient not complaining of any abdominal pains no diarrhea acute abdominal series shows nonspecific gas pattern without any ileus. (4) Acute kidney injury Is this a current diagnosis for this admission?: Yes Plan: 12/13/2018-patient was admitted with acute kidney injury which was resolved with IV fluids creatinine today 0.97. 12/14/2018-patient's latest creatinine is 1.0, on admission it is 1.55. Acute kidney injury probably prerenal. Which was resolved now. 12/15/2018-on admission patient's creatinine is 1.55 it was improved to 1.0. Acute kidney injury most likely secondary to prerenal causes. (5) AICD (automatic cardioverter/defibrillator) present Is this a current diagnosis for this admission?: Yes Plan: 12/14/2018 patient has AICD. As per the interrogation patient has a [employer] biventricular AICD. cardiology evaluation done. No problems during the hospital stay. 12/15/2018-patient has history of AICD it was placed in [place]. Plan is to continue the present management. (6) Ischemic cardiomyopathy Is this a current diagnosis for this admission?: Yes Plan: 12/14/2018-patient has ischemic cardiomyopathy with moderately reduced left vent ricular ejection fraction. No signs of fluid overload. Patient has chronic systolic heart failure. 12/15/2018-patient has a ischemic cardiomyopathy with reduced ejection fraction. He has chronic systolic heart failure. No signs of any fluid overload. - Time Time Spent with patient: 15-24 minutes Medications reviewed and adjusted accordingly: Yes Anticipated discharge: Home
[2018-12-15] MEDS: ONDANSETRON HCL INJ/PF 4 MG/2 ML SDV IV PRN (16:42)
[2018-12-15] MEDS: KETOROLAC TROMETHAMINE INJ/PF 30 MG/1 ML SDV IV PRN (16:42)
[2018-12-16] MEDS: PIPERACILLIN SODIUM/TAZOBACTAM 3.375 GM in NORMAL SALINE 100 ML IV SCH ×2 (03:37→09:13)
[2018-12-16] MEDS: METRONIDAZOLE 500 MG/NS RTU 500 MG/100 ML RTUPB IV SCH ×2 (05:38→11:18)
--- NOTE | 2018-12-16 07:04 | PDOC PROGRESS REPORT ---
Subjective Progress Note for:: 12/16/18 Reason For Visit: PERFORATED DIVERTICULITIS,ACUTE DIARRHEA Physical Exam Vital Signs: Temp Pulse Resp BP Pulse Ox 97.7 F 56 L 18 145/74 H 98 12/16/18 03:56 12/16/18 03:56 12/16/18 03:56 12/16/18 03:56 12/16/18 03:56 Intake & Output 12/15/18 12/16/18 12/17/18 06:59 06:59 06:59 Intake Total 1800 1500 Balance 1800 1500 Weight 104.3 kg 104.3 kg General appearance: PRESENT: no acute distress Eye exam: PRESENT: EOMI Neck exam: PRESENT: full ROM Respiratory exam: PRESENT: clear to auscultation debbie Cardiovascular exam: PRESENT: RRR GI/Abdominal exam: PRESENT: soft - abd soft, min tenderness to deep palp lower abd Extremities exam: PRESENT: full ROM Skin exam: PRESENT: dry Results Laboratory Results: 12/15/18 09:45 WBC 4.2 RBC 4.35 Hgb 12.5 L Hct 36.8 L MCV 85 MCH 28.8 MCHC 34.1 RDW 14.1 H Plt Count 151 Seg Neutrophils % 64.8 Lymphocytes % 23.0 Monocytes % 8.3 Eosinophils % 3.3 Basophils % 0.6 Absolute Neutrophils 2.7 Absolute Lymphocytes 1.0 Absolute Monocytes 0.4 Absolute Eosinophils 0.1 Absolute Basophils 0.0 12/10/18 17:05 Blood Blood Culture - Final NO GROWTH IN 5 DAYS 12/10/18 17:00 Blood Blood Culture - Final NO GROWTH IN 5 DAYS Impressions: Foot X-Ray 12/10/18 17:11 IMPRESSION: NO FRACTURE. Chest X-Ray 12/11/18 06:00 IMPRESSION: Cardiac enlargement without failure. No interval change. Abdomen/Pelvis CT 12/11/18 09:41 IMPRESSION: Diverticulitis with localized perforation and left lower quadrant. The amount of free air slightly less than previous stable inflammatory changes. There is still air in the scrotum via the inguinal canal, but less than previous. Acute Abdomen Series 12/13/18 00:00 IMPRESSION: Nonspecific bowel gas pattern without evidence of intestinal obstruction. Scattered gas fluid levels throughout the transverse and descending colon which can be seen with diarrheal illness or cathartic use. Minimal bibasilar opacities, likely atelectasis. Assessment & Plan - Diagnosis (1) Diverticulitis Is this a current diagnosis for this admission?: Yes - Plan Summary Plan Summary: pts tenderness in llq has essentially resolved wbc has been normal pt taking soft diet with poor appetite having bm's throughout hospitalization impression, resolving diverticulitis recommend pt could be discharged on po abx cipro 500mg bid flagyl 250mg po tid for 10 days will need a f/u exam in surgery clinic with a barium enema/colonoscopy in 4-6 wks.
[2018-12-16 07:09] LABS: ABSOLUTE EOSINOPHILS # (AUTO) 0.1 10^3/uL (0.0-0.6); ABSOLUTE MONOCYTES (AUTO) 0.3 10^3/uL (0.1-1.4); BASOPHILS % (AUTO) 0.7 % (0-2); EOSINOPHILS % (AUTO) 3.1 % (0-6); HEMOGLOBIN 11.7 g/dL (13.5-17.0); LYMPHOCYTES % (AUTO) 27.8 % (13-45); MEAN CORPUSCULAR HEMOGLOBIN 29.3 pg (27.0-33.4); MEAN CORPUSCULAR HGB CONC 34.5 g/dL (32.0-36.0); MEAN CORPUSCULAR VOLUME 85 fl (80-97); MONOCYTES % (AUTO) 9.6 % (3-13); PLATELET COUNT 138 10^3/uL (150-450); RED CELL DISTRIBUTION WIDTH 14.5 % (11.5-14.0); SEGMENTED NEUTROPHILS % (AUTO) 58.8 % (42-78); TOTAL CELLS COUNTED % (AUTO) 100 %; WHITE BLOOD COUNT 3.4 10^3/uL (4.0-10.5)
[2018-12-16 07:20] LABS: ALANINE AMINOTRANSFERASE 37 U/L (21-72); ALBUMIN 2.6 g/dL (3.5-5.0); ALKALINE PHOSPHATASE 43 U/L (38-126); ANION GAP 7 (5-19); ASPARTATE AMINO TRANSFERASE 29 U/L (17-59); BILIRUBIN,DIRECT 0.2 mg/dL (0.0-0.4); BILIRUBIN,TOTAL 0.6 mg/dL (0.2-1.3); BLOOD UREA NITROGEN 12 mg/dL (7-20); CALCIUM 9.3 mg/dL (8.4-10.2); CARBON DIOXIDE 24 mmol/L (22-30); CHLORIDE 110 mmol/L (98-107); GLUCOSE 81 mg/dL (75-110); POTASSIUM 3.4 mmol/L (3.6-5.0); SODIUM 141.1 mmol/L (137-145); TOTAL PROTEIN 4.8 g/dL (6.3-8.2)
[2018-12-16] MEDS: ATORVASTATIN CALCIUM 80 MG TABLET PO SCH (09:14)
[2018-12-16] MEDS: METOPROLOL SUCCINATE 25 MG TAB.SR.24H PO SCH (09:14)
[2018-12-16] MEDS: DOCUSATE SODIUM 100 MG CAPSULE PO SCH (09:14)
[2018-12-16] MEDS: ASPIRIN 81 MG TABLET, CHEWABLE PO SCH (09:14)
[2018-12-16] MEDS: LISINOPRIL 5 MG TABLET PO SCH (09:15)
[2018-12-16] MEDS: ISOSORBIDE MONONITRATE 30 MG TAB.ER.24H PO SCH (09:15)
[2018-12-16] MEDS: CITALOPRAM HYDROBROMIDE 20 MG TABLET PO SCH (09:15)
[2018-12-16] MEDS: RANOLAZINE 500 MG TAB.SR.12H PO SCH (09:16)
[2018-12-16] MEDS: ONDANSETRON HCL INJ/PF 4 MG/2 ML SDV IV PRN (09:16)
[2018-12-16 12:37] VITALS: BP 145/74
--- NOTE | 2018-12-16 17:54 | PDOC DISCHARGE SUMMARY ---
General - Admit/Disc Date/PCP Admission Date/Primary Care Provider: 12/10/18 14:47 Discharge Date: 12/16/18 - Discharge Diagnosis (1) Perforated diverticulum Is this a current diagnosis for this admission?: Yes Summary: Surgery following. Recommended conservative management at this time. Continue IV antibitotics. Abdominal pain has slightly improved. 12/10: Repeated CT of the abdomen this morning which shows improvement in the amount of free air. 12/11: Diet advanced to clear liquid by surgery. Noted recommendation for antibiotic duration of 10 days. 12/13/2018-patient was admitted with abdominal pain and found to have perforated diverticulum. Surgery on board. As per the surgery patient is under conservative management. Able to take a little bit of liquid diet this morning. And C. difficile was negative. We are going to put him on Zofran 4 mg IV every 6 as needed for nausea vomiting's. Blood pressure stable I am going to discontinue IV fluids today. 12/14/2018-patient was admitted with abdominal pain found to have a perforated diverticulum. Conservative management as per the surgery. He is able to tolerate the clear liquid diet well is going to be advanced to full liquid diet as per surgery. The acute abdominal series was done yesterday does not show any obstruction or ileus. no air in the peritoineum. Plan is to continue the present management and continue the antibiotics. 12/15/2018-patient was admitted with perforated diverticulum. His diarrhea was resolved. Able to tolerate the feeds. Plan is to probably discharge him tomorrow with p.o. antibiotic therapy for 7-10 days. 12/16/2018-patient came in acutely diarrhea CT abdomen and pelvis shows perforated diverticulum. Surgical consult was requested and the recommendation is for conservative management. Patient is able to tolerate the regular diet today. Bowel movements are normal. No complaints of abdominal pain. Patient is going back to [facility] on levofloxacin 500 mg p.o. daily for 1 week. Patient was strongly advised to follow-up with surgical clinic. He should agreed and verbalized response. (2) Acute diarrhea Is this a current diagnosis for this admission?: Yes Summary: Secondary to acute diverticulitis. C difficile was negative. Abdominal series showed nonobstructive pattern with ileus. He was given a liter of fluid bolus in the ER. Keep IV fluids at 50 cc/hr for now as he reports his last known EF was 25% years ago. 12/13/2018 patient has acute diarrhea still having the occasional loose stools probably secondary to acute diverticulitis C. difficile was negative as per the surgical recommendations she is going to be on antibiotics for 10 days. Acute abdominal series shows nonobstructive pattern with ileus. And is able to tolerate the liquid diet this morning and we going to discontinue his IV fluids. His EF was 25% and he has AICD cardiology consult was done Dr. Dsouza is recommending to interrogate the device the patient has. 12/14/2018-patient not complaining of any loose stools. C. difficile was negative. Acute abdominal series done shows nonspecific gas pattern without any signs of obstruction. Plan is to advance diet as tolerated. 12/15/2018-patient was admitted with acute diarrhea. No complaints of loose stools for the last 48 hours. C. difficile was negative. Latest acute abdominal series shows nonspecific gas pattern without any obvious signs of obstruction. Plan is probably discharge tomorrow. 12/16/2018-patient was admitted with acute diarrhea. No complaints of loose stools anymore. C. difficile negative. Acute abdominal series shows nonspecifi c gas patterns. (3) Ileus of unspecified type Is this a current diagnosis for this admission?: Yes Summary: Secondary to perforated diverticulitis. 12/13/2018-patient has an ileus probably secondary to perforated diverticulitis no complaints of abdominal pain today. We will continue the present management and good order for the acute abdominal series today. 12/14/2018-patient has good bowel movement able to tolerate the feeds. He acute abdominal series rule out any ileus. 12/15/2018-ilius was resolved. Patient not complaining of any abdominal pains no diarrhea acute abdominal series shows nonspecific gas pattern without any ileus. 12/16/2018-ileus was resolved no complaints of nausea no abdominal pain no diarrhea. (4) Acute kidney injury Is this a current diagnosis for this admission?: Yes Summary: 12/13/2018-patient was admitted with acute kidney injury which was resolved with IV fluids creatinine today 0.97. 12/14/2018-patient's latest creatinine is 1.0, on admission it is 1.55. Acute kidney injury probably prerenal. Which was resolved now. 12/15/2018-on admission patient's creatinine is 1.55 it was improved to 1.0. Acute kidney injury most likely secondary to prerenal causes. 12/16/2018-admission creatinine is 1.55 today's creatinine is 0.92. Acute kidney injury most likely secondary to prerenal causes. JOSESITO is resolved. (5) AICD (automatic cardioverter/defibrillator) present Is this a current diagnosis for this admission?: Yes Summary: 12/14/2018 patient has AICD. As per the interrogation patient has a [employer] biventricular AICD. cardiology evaluation done. No problems during the hospital stay. 12/15/2018-patient has history of AICD it was placed in [place]. Plan is to continue the present management. 12/16/2018-patient has AICD which was placed in [place]. Cardiology evaluation was done during the hospital stay. No complications during the hospital stay. (6) Ischemic cardiomyopathy Is this a current diagnosis for this admission?: Yes Summary: 12/14/2018-patient has ischemic cardiomyopathy with moderately reduced left ventricular ejection fraction. No signs of fluid overload. Patient has chronic systolic heart failure. 12/15/2018-patient has a ischemic cardiomyopathy with reduced ejection fraction. He has chronic systolic heart failure. No signs of any fluid overload. 12/16/2018-patient has history of ischemic cardiomyopathy with reduced ejection fraction he has chronic systolic heart failure. No signs of fluid overload on examination today. Patient is going back to [facility] today. Patient was advised to follow-up with surgical clinic in 1 week time. - Additional Information Resuscitation Status: Full Code Discharge Diet: As Tolerated Discharge Activity: Activity As Tolerated Prescriptions: Levofloxacin [Levaquin 500 mg Tablet] 500 mg PO DAILY #10 tablet Ondansetron HCl [Zofran 4 mg Tablet] 1 - 2 tab PO Q4H PRN #10 tablet PRN Reason: Home Medications: Aspirin [Ecotrin] 81 mg PO DAILY PRN 12/09/18 Atorvastatin Calcium [Lipitor 80 mg Tablet] 80 mg PO DAILY 12/09/18 Citalopram Hydrobromide [Celexa] 20 mg PO DAILY 12/09/18 Clopidogrel Bisulfate [Plavix 75 mg Tablet] 75 mg PO DAILY 12/09/18 Docusate Sodium [Colace 100 mg Capsule] 100 mg PO DAILY 12/09/18 Furosemide [Lasix 40 mg Tablet] 40 mg PO DAILY 12/09/18 Isosorbide Mononitrate [Imdur 60 mg Tablet.er] 60 mg PO DAILY 12/09/18 Lisinopril [Prinivil 2.5 mg Tablet] 2.5 mg PO DAILY 12/09/18 Metoprolol Succinate [Toprol Xl] 75 mg PO DAILY 12/09/18 Omeprazole 40 mg PO DAILY 12/09/18 Potassium Chloride 20 meq PO DAILY 12/09/18 Ranolazine [Ranexa] 1,000 mg PO Q12 12/09/18 Levofloxacin [Levaquin 500 mg Tablet] 500 mg PO DAILY #10 tablet 12/16/18 Ondansetron HCl [Zofran 4 mg Tablet] 1 - 2 tab PO Q4H PRN #10 tablet 12/16/18 History of Present Illness History of Present Illness: BETSY AGUDELO is a 73 year old male 73 year old male with a PMH of CAD with prior stenting x 2 (2006, 2007), prior CABG, CHF (reports his EF years ago was 25%), S/P pacemaker placement, ?renal cell CA S/P left sided nephrectomy who comes from [facility] who presented with vomiting and diarrhea. Patient says he has been having nonbloody nonbilious emeses ~2x/day since Wednesday. This was associated with loose, nonbloody stools ~1-2x/day. He also reports of left lower quadrant crampy pain. Denies fever or chills. He did complain of having some nasal congestion and nonproductive cough. 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 Denies chest pain or SOB. Physical Exam Vital Signs: Temp Pulse Resp BP Pulse Ox 97.7 F 58 L 20 145/74 H 98 12/16/18 12:32 12/16/18 12:32 12/16/18 12:32 12/16/18 12:32 12/16/18 12:32 Intake & Output 12/15/18 12/16/18 12/17/18 06:59 06:59 06:59 Intake Total 1800 1500 200 Balance 1800 1500 200 Weight 104.3 kg 104.3 kg General appearance: PRESENT: no acute distress Head exam: PRESENT: atraumatic Eye exam: PRESENT: PERRLA Mouth exam: PRESENT: moist Neck exam: ABSENT: carotid bruit, JVD, lymphadenopathy, thyromegaly Respiratory exam: PRESENT: clear to auscultation debbie. ABSENT: rales, rhonchi, wheezes Cardiovascular exam: PRESENT: RRR. ABSENT: diastolic murmur, rubs, systolic murmur GI/Abdominal exam: PRESENT: normal bowel sounds, soft. ABSENT: distended, guarding, mass, organolmegaly, rebound, tenderness Extremities exam: PRESENT: full ROM. ABSENT: calf tenderness, clubbing, pedal edema Neurological exam: PRESENT: alert, awake, oriented to person, oriented to place, oriented to time, oriented to situation, CN II-XII grossly intact. ABSENT: motor sensory deficit Psychiatric exam: PRESENT: appropriate affect, normal mood. ABSENT: homicidal ideation, suicidal ideation Results Laboratory Results: 12/16/18 06:00 12/16/18 06:00 12/16/18 12/16/18 06:00 06:00 WBC 3.4 L RBC 4.00 L Hgb 11.7 L Hct 34.0 L MCV 85 MCH 29.3 MCHC 34.5 RDW 14.5 H Plt Count 138 L Seg Neutrophils % 58.8 Lymphocytes % 27.8 Monocytes % 9.6 Eosinophils % 3.1 Basophils % 0.7 Absolute Neutrophils 2.0 Absolute Lymphocytes 1.0 Absolute Monocytes 0.3 Absolute Eosinophils 0.1 Absolute Basophils 0.0 Sodium 141.1 Potassium 3.4 L Chloride 110 H Carbon Dioxide 24 Anion Gap 7 BUN 12 Creatinine 0.92 Est GFR ( Amer) > 60 Est GFR (Non-Af Amer) > 60 Glucose 81 Calcium 9.3 Magnesium 1.9 Total Bilirubin 0.6 AST 29 ALT 37 Alkaline Phosphatase 43 Total Protein 4.8 L Albumin 2.6 L 12/10/18 17:05 Blood Blood Culture - Final NO GROWTH IN 5 DAYS 12/10/18 17:00 Blood Blood Culture - Final NO GROWTH IN 5 DAYS Impressions: Foot X-Ray 12/10/18 17:11 IMPRESSION: NO FRACTURE. Chest X-Ray 12/11/18 06:00 IMPRESSION: Cardiac enlargement without failure. No interval change. Abdomen/Pelvis CT 12/11/18 09:41 IMPRESSION: Diverticulitis with localized perforation and left lower quadrant. The amount of free air slightly less than previous stable inflammatory changes. There is still air in the scrotum via the inguinal canal, but less than previ ous. Acute Abdomen Series 12/13/18 00:00 IMPRESSION: Nonspecific bowel gas pattern without evidence of intestinal obstruction. Scattered gas fluid levels throughout the transverse and descending colon which can be seen with diarrheal illness or cathartic use. Minimal bibasilar opacities, likely atelectasis. Qualifiers - * PATIENT BEING DISCHARGED WITH ANY OF THE FOLLOWING DIAGNOSIS: No VTE patient discharged on overlapping Therapy?: No
== END 2018-12-16 13:58 | disposition home or self-care (01) | DRG 392 ==
LOC: ER 08:18 → EEVIPCON 17:43 → INTOOBSV 17:43 → EH 17:43 → 4N 19:53 → OBSVTOIN 12-10 14:47
PROVIDERS: ADMIT Internal Medicine; ATTEND Internal Medicine
DX: K57.80 Diverticulitis of intestine, part unspecified, with perforation and abscess without bleeding (principal); K56.0 Paralytic ileus; N17.9 Acute kidney failure, unspecified; I50.22 Chronic systolic (congestive) heart failure; K21.9 Gastro-esophageal reflux disease without esophagitis; I25.10 Atherosclerotic heart disease of native coronary artery without angina pectoris; I25.5 Ischemic cardiomyopathy; I11.0 Hypertensive heart disease with heart failure; R19.7 Diarrhea, unspecified; Z95.5 Presence of coronary angioplasty implant and graft; Z95.1 Presence of aortocoronary bypass graft; Z95.0 Presence of cardiac pacemaker; I25.2 Old myocardial infarction; Z79.01 Long term (current) use of anticoagulants
CPT/HCPCS: 36415; 71045; 74022; 74176; 80048; 80053; 81001; 83605; 83690; 83735; 85025; 87040; 87045; 87205; 87493; 87804; 89055; 93005; 93010; 93306; 94640; 96361; 96374; 96375; 99285; G0378; J0690; J1885; J2270; J2405; J2543; J7030; J7620